=== PATIENT | female | born 2000 | race Caucasian/White ===

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

== ENCOUNTER 2022-01-25 14:22 | Outpatient (REF) | payer OTHER, SELFPAY ==
[2022-01-25 14:48] LABS: Hematocrit 37.6 % (37.0-47.0); Hemoglobin 12.4 g/dl (12.0-16.0); Mean Corpuscular Hemoglobin 27.9 pg (27.0-33.0); Mean Corpuscular Volume 84.7 fL (80.0-98.0); Mean Platelet Volume 9.2 fL (9.4-12.3); Platelet Count 323 X10*3/uL (160-400); Red Blood Count 4.44 X10*6/uL (4.20-5.50); Red Cell Distribution Width 13.9 % (11.0-16.0); White Blood Count 5.5 X10*3/uL (4.8-10.8)
[2022-01-25 15:14] LABS: Iron 68 mcg/dL (30-160); Percent Iron Saturation 18 % (15-50); Total Iron Binding Capacity 383 mcg/dL (228-428); Unsaturated Iron Binding 315 ug/dL
[2022-01-25 15:33] LABS: Ferritin 5 ng/mL (10-122)
[2022-01-25 15:47] LABS: Folate 11.6 ng/mL (> or = 4.0); Vitamin B12 484 pg/mL (200-900)
== END 2022-01-25 14:23 | disposition home or self-care (01) ==
LOC: HO.LAB 14:22
PROVIDERS: PCP Physician Assistant; Visit Provider Physician Assistant
DX: Z86.2 Personal history of diseases of the blood and blood-forming organs and certain disorders involving the immune mechanism (principal)
CPT/HCPCS: 36415; 82607; 82728; 82746; 83540; 85027

== ENCOUNTER 2023-05-09 12:48 | Outpatient (RCR) | payer OTHER, SELFPAY | END 2023-05-16 14:57 | disposition home or self-care (01) | LOC: HO.OT 12:48 | PROVIDERS: PCP Nurse Practitioner Family; Visit Provider Nurse Practitioner Family | DX: G56.03 Carpal tunnel syndrome, bilateral upper limbs (principal) | CPT/HCPCS: 29125; 97110; 97166; 97760 ==

== ENCOUNTER 2023-05-15 11:06 | Outpatient (REF) | payer OTHER, SELFPAY ==
[2023-05-15 11:28] LABS: MANUAL DIFF FLAG NO
[2023-05-15 11:51] LABS: Basophils Percent Auto 0.4 % (0-2); Eosinophils Percent Auto 0.6 % (0-4); Hematocrit 39.4 % (37.0-47.0); Hemoglobin 13.4 g/dl (12.0-16.0); Imm Gran Abs Auto 0.01 X10*3/uL (0.00-0.03); Imm Gran Pct Auto 0.2 % (0.0-0.4); Lymphocytes Absolute Auto 2.2 X10*3/uL (1.2-4.9); Lymphocytes Percent Auto 46.4 % (20-40); Mean Corpuscular Hemoglobin 28.8 pg (27.0-33.0); Mean Corpuscular Volume 84.5 fL (80.0-98.0); Mean Platelet Volume 8.7 fL (9.4-12.3); Monocytes Absolute Auto 0.5 X10*3/uL (0.1-1.2); Monocytes Percent Auto 10.3 % (2-11); Neutrophils Percent Auto 42.1 % (45-73); Platelet Count 282 X10*3/uL (160-400); Red Blood Count 4.66 X10*6/uL (4.20-5.50); White Blood Count 4.7 X10*3/uL (4.8-10.8)
[2023-05-15 12:33] LABS: Appearance Urine Clear; Color Urine Yellow; Glucose Urine UA Negative (Negative); Leukocyte Esterase Urine Trace (Negative); Nitrite Urine Negative (Negative); Specific Gravity - Urine 1.025 (1.005-1.025); UMIC TRIGGER UACC YES; Urine Blood Negative (Negative); Urine Ketones Trace mg/dL (Negative); Urine Protein Negative (Neg-Trace)
[2023-05-15 12:38] LABS: Bacteria Urine 3+ (None Seen); Hyaline Casts Urine 0-2 /LPF (0-2); RBC Urine 0-2 /HPF (0-2); WBC Urine 0-5 /HPF (0-5)
[2023-05-15 12:50] LABS: Alanine Aminotransferase 9 U/L (0-31); Albumin Level 4.1 g/dL (3.5-5.0); Alkaline Phosphatase 53 U/L (39-117); Anion Gap 11 (12-20); Aspartate Amino Transferase 15 U/L (5-31); Bilirubin Total 0.8 mg/dL (0.0-1.0); Blood Urea Nitrogen 9 mg/dL (9-16); Calcium 9.5 mg/dL (8.4-10.2); Carbon Dioxide 26 mmol/L (22-29); Chloride 107 mmol/L (96-108); Cholesterol 157 mg/dL; Estimated Glomerular Filt Rate > 60; Glucose Fasting 85 mg/dL (60-99); HDL Cholesterol 43 mg/dL; LDL Cholesterol Calculated 103 mg/dl; Potassium 3.9 mmol/L (3.3-5.1); Sodium 140 mmol/L (135-145); Triglycerides 55 mg/dL
[2023-05-15 13:06] LABS: TSH reflex Free T4 1.31 uIU/mL (0.32-4.0)
== END 2023-05-15 11:07 | disposition home or self-care (01) ==
LOC: HO.LAB 11:06
PROVIDERS: PCP Nurse Practitioner Family; Visit Provider Nurse Practitioner Family
DX: Z00.00 Encounter for general adult medical examination without abnormal findings (principal); R25.2 Cramp and spasm; K21.9 Gastro-esophageal reflux disease without esophagitis
CPT/HCPCS: 36415; 80053; 80061; 81001; 84443; 85025

== ENCOUNTER 2023-05-31 13:43 | Outpatient (AMB) | payer OTHER, SELFPAY ==
[2023-05-31 13:55] VITALS: BP 114/62; PULSE 90; O2SAT 99; BMI 21.7
--- NOTE | 2023-05-31 13:55 | A.OFFVIS_ITS ---
Intake Vital Signs 05/31/23 13:55 Height 5 ft 3.5 in Weight 124 lb 8.979 oz BMI 21.7 BP 114/62 Blood Pressure Location Lt brachial Position Sitting Pulse 90 Pulse Source Pulse Oximeter Pulse Oximetry (%) 99 Oxygen Delivery Method Room Air Intake Visit Reasons: Asthma Intake Note: New patient visit for management of asthma. Patient would like to know definitively that she asthma. She mentions that she has alot allergies and wonders if they are related. Soundscriber Mechanic Required: No Linotype Machinist: Linotype Machinist offered & declined Accompanied by: Self / Same As Patient Allergies cat dander Allergy (Severe, Verified 05/31/23 13:58) Severe Congestion cranberry Allergy (Severe, Verified 05/31/23 13:58) Itchy Throat dog dander Allergy (Severe, Verified 05/31/23 13:58) Severe Congestion Seasonal Allergies Allergy (Intermediate, Verified 05/31/23 13:58) Itchy Eyes Medication List - Last Reconciled 05/31/23 by Gisselle Guadarrama LPN albuterol sulfate 90 mcg/actuation 2 puffs inhalation Q4-6H PRN HPI Asthma HPI Details Cris is a pleasant 22 year old female, never tobacco smoker, everyday marijuana smoker, with underlying history of asthma. Today she presents for pulmonary evaluation. She reports persistent chest tightness, shortness of breath, productive cough with yellow sputum for the past two years. She also reports environmental allergies as well as allergies to cats. She has two cats and a dog at home. She is not on any allergy medications. She has had asthma since childhood but has never hospitalized or intubated due to exacerbations. She reports a maternal uncle with lung cancer, smoker, and siblings with asthma. She reports using a family members nebulizer machine PRN and has an albuterol MDI but does not like the side effects so uses infrequently. She has not been on any maintenance inhalers and has not had a recent PFT. [facility] Medical History Bronchitis Ovarian cyst Vaping-related disorder Surgical History No pertinent past surgical history Family History Mother No problems noted. Father Diabetes Maternal Grandmother High blood pressure Paternal Grandmother Diabetes Maternal Grandfather Diabetes Paternal Grandfather Diabetes Family/Other Breast cancer Maternal Aunt Breast cancer Stomach cancer Social History Housing: Apartment Alcohol intake: never Patient Tobacco Use Status: Current everyday Tobacco user (Hookah) Tobacco use type: Pipe (HOOKAH) e-Cigarette/Vaping Use: Former Use service: No Current occupational status: unemployed Cognitive needs: No Hearing needs: No Vision needs: No (Needs to make an appt with eye doctor. ) Review of Systems Const Denies chills, Denies excessive sweating, Denies fever(s), Denies headache(s) and Denies night sweats Eyes Denies dry eyes, Denies irritation and Reports itchy eyes ENT Reports Normal hearing present, Denies headache(s), Reports nasal congestion, Denies nasal discharge, Denies post nasal drip and Denies sore throat Card Denies chest pain, Denies chest pain at rest, Denies chest pain with activity, Denies claudication, Denies leg edema, Denies dyspnea, Denies orthopnea and Denies paroxysmal nocturnal dyspnea Resp Denies chest congestion, Denies excessive phlegm production, Denies pain on inspiration, Denies pain with cough, Denies dyspnea, Denies stridor and Reports wheezing Musc Denies myalgias Neuro Reports Normal hearing present and Denies headache(s) Endo Denies excessive sweating Schuyler/Lymph Denies lymphadenopathy Aller/Immun Reports itchy eyes, Denies seasonal rhinorrhea and Reports wheezing Physical Exam Vital Signs: Last Vital Signs Pulse 90 05/31/23 13:55 BP 114/62 05/31/23 13:55 Pulse Ox 99 05/31/23 13:55 Oxygen Delivery Method Room Air 05/31/23 13:55 BMI result Body Mass Index 21.7 Const General: cooperative, healthy appearing, comfortable, no acute distress, well developed and alert Orientation/consciousness: patient oriented x3 Limitations: no limitations HEENT Head: Yes normal to inspection, Yes normocephalic and Yes atraumatic Ears: hearing grossly normal bilaterally and external ears normal Eyes General: appearance normal, both eyes and all related structures Eyelids: Yes eyelids normal Sclerae: sclerae normal EOM: EOMs intact bilaterally Neck Neck: Yes normal visual inspection and Yes no lymphadenopathy Lymphatic: no lymphadenopathy noted Chest Chest palpation & inspection: normal inspection of the chest Resp Other: poor air movement bilaterally, improved after xopenex Effort & Inspection: normal respiratory effort, able to speak in complete sentences, no audible wheezes, no cough, no stridor, not tachypneic, no tripod positioning and no use of accessory muscles Auscultation: clear to auscultation bilaterally Cardio Jugular venous distension: no JVD Rate: regular rate Rhythm: regular rhythm Skin Other: warm, dry General skin exam: no rashes or lesions noted Neuro General: patient oriented x3 Cranial nerves: Yes Normal hearing present Cognition (Neuro): normal cognition Gait exam (Neuro): Normal gait present Extrem General: Yes normal to inspection, Yes capillary refill normal, Yes no clubbing, cyanosis or edema and Yes no pedal edema Psych Appearance: grossly normal and well kempt Speech and movement: Normal speech and movement present and Clear speech present Affect: normal affect Attitude: cooperative Thought process: Normal thought process present Thought content: Normal thought content present Insight: Good insight present (Psych) Judgement: Good judgement present (Psych) Assessment & Plan Assessment & Plan (1) Asthma: Code(s): J45.909 - Unspecified asthma, uncomplicated (2) Environmental allergies: Code(s): Z91.09 - Other allergy status, other than to drugs and biological substances Plan Cris's symptoms consistent with asthma and underlying allergic component. Will order PFT as well as RAST. On exam, patient with poor air movement bilaterally and gave xopenex treatment in office with improvements. Will send in nebulizer and xopenex to use PRN. Discussed adding an empiric inhaler but she would like to hold off until PFT results. All questions were answered and patient is in agreement of plan. Will follow up to review results. Orders: Orders Rast Allergen Today Z91.09 - Other allergy status, other than to drugs and biological substances AMB Nebulizer Treatment Today J40 - Bronchitis, not specified as acute or chronic Medications: New levalbuterol HCl 1.25 mg (3 mL) inhalation ONCE 3 mL 0RF bronchitis J40 - Bronchitis, not specified as acute or chronic levalbuterol HCl must dilute for administration 1.25 mg (0.5 mL) inhalation Q4-6H PRN 90 mL 3RF shortness of breath or wheezing Coding Level of Care Code New Pt Level 4 (63470) Diagnoses Asthma J45.909 Environmental allergies Z91.09
== END 2023-05-31 14:43 | disposition home or self-care (01) ==
PROVIDERS: PCP Nurse Practitioner Family; Visit Provider Nurse Practitioner Family
DX: J45.909 Unspecified asthma, uncomplicated (principal); Z91.09 Other allergy status, other than to drugs and biological substances
CPT/HCPCS: 99204

== ENCOUNTER → 2023-05-31 13:43 | Outpatient (BNVA) | payer OTHER, SELFPAY | PROVIDERS: PCP Nurse Practitioner Family; Visit Provider Nurse Practitioner Family | DX: J45.909 Unspecified asthma, uncomplicated (principal); Z91.09 Other allergy status, other than to drugs and biological substances | CPT/HCPCS: 99202 ==

== ENCOUNTER 2023-06-19 10:34 | Outpatient (AMB) | payer OTHER, SELFPAY ==
--- NOTE | 2023-06-19 10:36 | MHC.OFFVIS ---
Intake Vital Signs 06/19/23 10:37 Height 5 ft 3.5 in Weight 124 lb 5.451 oz BMI 21.7 BP 110/64 Blood Pressure Location Lt brachial Position Sitting Pulse 80 Intake Visit Reasons: GERD, abd cramps Intake Note: Cris presents in office as a new.patient for GERD, abd cramps PT CC: pt reports having abdominal cramping and GERD on/off 3-4 days out of the week, constipation , bloating pt denies any other GI Issues. Lumber Tailer Required: No Accompanied by: Spouse Allergies cat dander Allergy (Severe, Verified 06/19/23 10:37) Severe Congestion cranberry Allergy (Severe, Verified 06/19/23 10:37) Itchy Throat dog dander Allergy (Severe, Verified 06/19/23 10:37) Severe Congestion Seasonal Allergies Allergy (Intermediate, Verified 06/19/23 10:37) Itchy Eyes HPI GERD, abd cramps HPI Details 22-year-old female with past medical history anxiety, asthma PTSD is here today for initial consultation. Patient was referred by PCP. Patient was seen by foaming machine operator in the past. Had upper endoscopy and colonoscopy done at [facility]. Currently she is not taking any PPI ice or H2 blockers. Patient reports frequent epigastric discomfort postprandially. Patient states that also after drinking orange juice or soda she also will have epigastric pain. Patient reports frequent dyspepsia is without dysphagia or odynophagia. Patient denies any nausea or vomiting. Patient states that frequently due to epigastric discomfort patient states that she feels full. Patient states that she has normal appetite. Patient has not notice to see which food causes her postprandial dyspepsia. Patient feels like anything she eats makes her feel this way. Patient also reports postprandial abdominal bloating. REPLACED BY [facility] Medical History Bronchitis Ovarian cyst Vaping-related disorder Surgical History No pertinent past surgical history Family History Mother No problems noted. Father Diabetes Maternal Grandmother High blood pressure Paternal Grandmother Diabetes Maternal Grandfather Diabetes Paternal Grandfather Diabetes Family/Other Breast cancer Maternal Aunt Breast cancer Stomach cancer Social History Housing: Apartment Alcohol intake: never Patient Tobacco Use Status: Current everyday Tobacco user (Hookah) Tobacco use type: Pipe (HOOKAH) e-Cigarette/Vaping Use: Former Use service: No Current occupational status: unemployed Cognitive needs: No Hearing needs: No Vision needs: No (Needs to make an appt with eye doctor. ) Review of Systems Const Denies weight gain and Denies weight loss ENT Reports no additional complaints, Denies dysphagia and Denies odynophagia Card Reports no additional complaints Resp Reports no additional complaints GI Reports abdominal pain (Epigastric), Denies belching, Denies melena, Reports bloating (Occasional), Reports constipation, Denies dysphagia, Denies excessive flatus, Reports dyspepsia, Reports heartburn, Denies diarrhea, Denies loose stools, Denies nausea, Denies odynophagia and Denies vomiting Reports no additional complaints Musc Reports no additional complaints Neuro Reports no additional complaints Psych Reports no additional complaints Endo Reports no additional complaints Physical Exam Vital Signs: Last Vital Signs Pulse 80 06/19/23 10:37 BP 110/64 06/19/23 10:37 BMI result Body Mass Index 21.7 Const General: healthy appearing, no acute distress and well developed Nutritional Appearance: well nourished Orientation/consciousness: patient oriented x3 HEENT Head: Yes normal to inspection, Yes normocephalic and Yes atraumatic Face and sinus: Yes normal facial exam Mouth: Normal oral and palatal mucosa present Throat: Yes posterior oropharynx normal, Yes tonsils normal and Yes uvula midline Eyes General: appearance normal, both eyes and all related structures Neck Neck: Yes normal visual inspection, Yes full ROM and Yes trachea midline Thyroid: Thyroid normal Resp Effort & Inspection: normal respiratory effort, able to speak in complete sentences, no tracheal deviation and symmetric chest movement Auscultation: clear to auscultation bilaterally Cardio Rate: regular rate Heart sounds: S1 normal heart sound present and S2 normal heart sound present GI Inspection: Yes normal to inspection and No distended Palpation (GI): Soft to palpation, not firm, nontender and No hepatosplenomegaly present Auscultation: normal bowel sounds General: Yes no CVA tenderness Back/Spine/Pelvis Back: no CVA tenderness Skin General skin exam: elasticity normal, turgor normal and dry skin Neuro General: patient oriented x3 Psych Appearance: grossly normal Mental Status: mental status grossly normal Speech and movement: Normal speech and movement present Affect: normal affect Assessment & Plan Assessment & Plan (1) GERD (gastroesophageal reflux disease): Code(s): K21.9 - Gastro-esophageal reflux disease without esophagitis Qualifiers: Esophagitis presence: without esophagitis Qualified Code(s): K21.9 - Gastro-esophageal reflux disease without esophagitis Plan: Will start patient on pantoprazole and she will start that after H pylori testing. Patient will be scheduled for Monday for H pylori testing with the nurse. She can start taking pantoprazole after. Patient was also encouraged to avoid dietary triggers and late night snacking. Staying upright for minimal 3 hours after meals discussed with patient. (2) Postprandial abdominal bloating: Code(s): R14.0 - Abdominal distension (gaseous) Plan: Discussed with patient avoiding dietary triggers. Patient reports epigastric discomfort postprandially as well. Will start her on pantoprazole. Discuss with patient avoiding dietary triggers. Will order transglutaminase and H pylori. Will treat empirically if positive (3) Constipation: Code(s): K59.00 - Constipation, unspecified Qualifiers: Constipation type: slow transit constipation Qualified Code(s): K59.01 - Slow transit constipation Plan: Patient reports to be constipated. Patient states that she will have a bowel movement only if she drinks a lot a water. Patient was encouraged to increase fluid intake and activity to promote better bowel motility. I will give her script for MiraLax. I will see her in 6 weeks, sooner on as needed basis. Patient is agreeable to this plan and verbalizes understanding of instructions. She was given the opportunity to ask questions all questions answered. Thank you for allowing me to participate in her care Orders: Orders Transglutaminase IgA Today R10.9 - Unspecified abdominal pain Transglutaminase Ab IgG Today R10.9 - Unspecified abdominal pain H Pylori Breath Test Today Medications: New pantoprazole take one tablet half an hour before breakfast 40 mg PO DAILY 30 tabs 2RF K21.9 - Gastro-esophageal reflux disease without esophagitis polyethylene glycol 3350 (Miralax) 17 grams PO DAILY 510 grams 2RF Coding Level of Care Code New Pt Level 4 (44539) Diagnoses GERD (gastroesophageal reflux disease) K21.9 Esophagitis presence: without esophagitis Postprandial abdominal bloating R14.0 Constipation K59.01 Constipation type: slow transit constipation Time Spent (min) 45 Comment 30 minutes spent with patient and additional 15 minutes spent reviewing her records
[2023-06-19 10:37] VITALS: BP 110/64; PULSE 80; BMI 21.7
== END 2023-06-19 12:21 | disposition home or self-care (01) ==
PROVIDERS: PCP Nurse Practitioner Family; Visit Provider Nurse Practitioner Family
DX: K21.9 Gastro-esophageal reflux disease without esophagitis (principal); R14.0 Abdominal distension (gaseous); K59.01 Slow transit constipation
CPT/HCPCS: 99204

== ENCOUNTER 2023-06-19 10:34 | Outpatient (REF) | payer OTHER, SELFPAY ==
[2023-06-21 14:13] LABS: Transglutaminase Ab IgG <1.0 U/mL; Transglutaminase IgA <1.0 U/mL
== END 2023-06-19 10:35 | disposition home or self-care (01) ==
LOC: HO.LAB 10:34
PROVIDERS: Nurse Practitioner Family; PCP Nurse Practitioner Family; Visit Provider Nurse Practitioner Family
DX: K21.9 Gastro-esophageal reflux disease without esophagitis (principal); R10.9 Unspecified abdominal pain; R14.0 Abdominal distension (gaseous); K59.01 Slow transit constipation; Z91.09 Other allergy status, other than to drugs and biological substances
CPT/HCPCS: 36415; 82785; 86003; 86364; 99202

== ENCOUNTER 2023-07-10 15:28 | Outpatient (REF) | payer OTHER, SELFPAY ==
--- NOTE | 2023-07-10 16:20 | PFT_ITS ---
INDICATION: Asthma. SPIROMETRY: FEV to FVC of 97% with an FEV1 of 3.47 L, which is 160% predicted, FVC of 3.58 L, which is 95% predicted. No significant response to bronchodilators noted. Maximum voluntary ventilation is 69% predicted. LUNG VOLUMES: Total lung capacity 91% predicted with a residual volume 161% predicted. DIFFUSION CAPACITY: DLCO of 94% predicted. POST TEST COMMENTS: The patient did attempt all the maneuvers with great effort but had some difficulties performing the FVC. Also after the epidural, she did have some adverse effects from the regular epidural medication. Otherwise, she has tolerated the procedure. COMPARISONS: None. INTERPRETATION: No obstructive nor restrictive ventilatory defects identified. No significant response to bronchodilators noted. Mild decrease in the maximum voluntary ventilation, which is secondary to likely deconditioning and also worsening dynamic inspiratory capacity. Lung volumes with significant air trapping, which may be related to small airway disease. In addition to that, diffusion capacity is within normal limits. If asthma is in the differential, methacholine challenge may be helpful in assessing for hyperreactive airways. Otherwise, clinical correlation warranted. MD KIANNA Tamayo/[facility] / [id number]
== END 2023-07-10 15:29 | disposition home or self-care (01) ==
LOC: HO.RESP 15:28
PROVIDERS: PCP Nurse Practitioner Family; Visit Provider Nurse Practitioner Family
DX: J45.909 Unspecified asthma, uncomplicated (principal)
CPT/HCPCS: 94010; 94727; 94729

== ENCOUNTER → 2023-07-10 16:20 | Outpatient (BNV) | payer OTHER, SELFPAY | PROVIDERS: PCP Nurse Practitioner Family; Visit Provider Hospitalist | DX: J45.909 Unspecified asthma, uncomplicated (principal) | CPT/HCPCS: 94060; 94727; 94729 ==

== ENCOUNTER → 2023-07-11 13:08 | Outpatient (AMB) | payer OTHER, SELFPAY ==
[2023-07-11 13:13] VITALS: BP 102/60; PULSE 68; O2SAT 100; BMI 21.6
--- NOTE | 2023-07-11 13:13 | A.OFFVIS_ITS ---
Intake Vital Signs 07/11/23 13:13 Height 5 ft 3.5 in Weight 124 lb BMI 21.6 BP 102/60 Blood Pressure Location Lt brachial Position Sitting Pulse 68 Pulse Source Pulse Oximeter Pulse Oximetry (%) 100 Oxygen Delivery Method Room Air Intake Visit Reasons: asthma Aluminizer Required: No Cisco Network Architect: Cisco Network Architect offered & declined Accompanied by: Spouse Allergies cat dander Allergy (Severe, Verified 07/11/23 13:18) Severe Congestion cranberry Allergy (Severe, Verified 07/11/23 13:18) Itchy Throat dog dander Allergy (Severe, Verified 07/11/23 13:18) Severe Congestion Seasonal Allergies Allergy (Intermediate, Verified 07/11/23 13:18) Itchy Eyes Medication List - Last Reconciled 07/11/23 by Gisselle Guadarrama LPN albuterol sulfate 90 mcg/actuation 2 puffs inhalation Q4-6H PRN levalbuterol HCl 1.25 mg (0.5 mL) inhalation Q4-6H PRN pantoprazole 40 mg PO DAILY polyethylene glycol 3350 (Miralax) 17 grams PO DAILY HPI asthma HPI Details Cris is a pleasant 22 year old female, never tobacco smoker, everyday marijuana smoker, with underlying history of asthma. She reports persistent chest tightness, shortness of breath, productive cough and triggers to dust as well as multiple irritants with good response to albuterol. Today she reports to follow up on PFT and RAST testing. At the last visit she was sent a nebulizer and received the machine but has not been to the pharmacy to tile picker levalbuterol. [facility] Medical History Bronchitis Ovarian cyst Vaping-related disorder Surgical History No pertinent past surgical history Family History Mother No problems noted. Father Diabetes Maternal Grandmother High blood pressure Paternal Grandmother Diabetes Maternal Grandfather Diabetes Paternal Grandfather Diabetes Family/Other Breast cancer Maternal Aunt Breast cancer Stomach cancer Social History Housing: Apartment Alcohol intake: never Patient Tobacco Use Status: Current everyday Tobacco user (Hookah) Tobacco use type: Pipe (HOOKAH) e-Cigarette/Vaping Use: Former Use service: No Current occupational status: unemployed Cognitive needs: No Hearing needs: No Vision needs: No (Needs to make an appt with eye doctor. ) Review of Systems Const Denies chills, Denies excessive sweating, Denies fever(s), Denies headache(s) and Denies night sweats Eyes Denies dry eyes, Denies irritation and Reports itchy eyes ENT Reports Normal hearing present, Denies headache(s), Reports nasal congestion, Denies nasal discharge, Denies post nasal drip and Denies sore throat Card Denies chest pain, Denies chest pain at rest, Denies chest pain with activity, Denies claudication, Denies leg edema, Denies dyspnea, Denies orthopnea and Denies paroxysmal nocturnal dyspnea Resp Denies chest congestion, Denies excessive phlegm production, Denies pain on inspiration, Denies pain with cough, Denies dyspnea, Denies stridor and Reports wheezing Musc Denies myalgias Neuro Reports Normal hearing present and Denies headache(s) Endo Denies excessive sweating Schuyler/Lymph Denies lymphadenopathy Aller/Immun Reports itchy eyes, Denies seasonal rhinorrhea and Reports wheezing Physical Exam Vital Signs: Last Vital Signs Pulse 68 07/11/23 13:13 BP 102/60 07/11/23 13:13 Pulse Ox 100 07/11/23 13:13 Oxygen Delivery Method Room Air 07/11/23 13:13 BMI result Body Mass Index 21.6 Const General: cooperative, healthy appearing, comfortable, no acute distress, well developed and alert Orientation/consciousness: patient oriented x3 Limitations: no limitations HEENT Head: Yes normal to inspection, Yes normocephalic and Yes atraumatic Ears: hearing grossly normal bilaterally and external ears normal Eyes General: appearance normal, both eyes and all related structures Eyelids: Yes eyelids normal Sclerae: sclerae normal EOM: EOMs intact bilaterally Neck Neck: Yes normal visual inspection and Yes no lymphadenopathy Lymphatic: no lymphadenopathy noted Chest Chest palpation & inspection: normal inspection of the chest Resp Effort & Inspection: normal respiratory effort, able to speak in complete se ntences, no audible wheezes, no cough, no stridor, not tachypneic, no tripod positioning and no use of accessory muscles Auscultation: diminished lung sounds Cardio Jugular venous distension: no JVD Rate: regular rate Rhythm: regular rhythm Skin Other: warm, dry General skin exam: no rashes or lesions noted Neuro General: patient oriented x3 Cranial nerves: Yes Normal hearing present Cognition (Neuro): normal cognition Gait exam (Neuro): Normal gait present Extrem General: Yes normal to inspection, Yes capillary refill normal, Yes no clubbing, cyanosis or edema and Yes no pedal edema Psych Appearance: grossly normal and well kempt Speech and movement: Normal speech and movement present and Clear speech present Affect: normal affect Attitude: cooperative Thought process: Normal thought process present Thought content: Normal thought content present Insight: Good insight present (Psych) Judgement: Good judgement present (Psych) Results Reviewed Results Reviewed: Assessment & Plan Assessment & Plan (1) Asthma: Code(s): J45.909 - Unspecified asthma, uncomplicated (2) Environmental allergies: Code(s): Z91.09 - Other allergy status, other than to drugs and biological substances Plan Reviewed PFT with patient which did not reveal an obstructive or restrictive ventilatory defect, although symptoms consistent with asthma. There were findings suggestive of air trapping which could be related to small airway disease. Will trial ICS/LABA. Reviewed RAST testing which was positive to dust mites. Discussed allergen avoidance measures. She noted that she previously was under the care of an promotions executive, receiving allergen immunotherapy with good effect and is interested in restarting. Encouraged patient to schedule a follow up with promotions executive. All questions were answered and patient is in agreement of plan. Will follow up to three months to review effectiveness of inhaler. Medications: New mometasone-formoterol 100-5 mcg/actuation (Dulera) 2 puffs inhalation BID 1 ea 3RF levalbuterol tartrate 45 mcg/actuation 2 puffs inhalation Q4-6H PRN 15 grams 3RF shortness of breath Coding Level of Care Code Est Pt Level 4 (35266) Diagnoses Asthma J45.909 Environmental allergies Z91.09
== END ==
PROVIDERS: PCP Nurse Practitioner Family; Visit Provider Nurse Practitioner Family
DX: J45.909 Unspecified asthma, uncomplicated (principal); Z91.09 Other allergy status, other than to drugs and biological substances
CPT/HCPCS: 99214

== ENCOUNTER → 2023-07-11 13:08 | Outpatient (BNVA) | payer OTHER, SELFPAY | PROVIDERS: PCP Nurse Practitioner Family; Visit Provider Nurse Practitioner Family | DX: J45.909 Unspecified asthma, uncomplicated (principal); Z91.09 Other allergy status, other than to drugs and biological substances | CPT/HCPCS: 99212 ==

== ENCOUNTER 2023-11-30 13:14 | Emergency (ER) | payer OTHER, SELFPAY ==
[2023-11-30 13:58] VITALS: BP 114/63; PULSE 100; RESP 19; TEMP 36.8; O2SAT 98; BMI 22.1
--- NOTE | 2023-11-30 14:00 | ED_ITS ---
HPI - URI/Sore Throat General Chief Complaint: Upper Respiratory Symptoms Stated Complaint: coughing up phlem yellow Time Seen by Provider: 11/30/23 16:58 Source: patient and family Mode of arrival: ambulatory Limitations: no limitations History of Present Illness HPI Narrative: Feeling unwell since Monday and cough started 3 days ago. Hx: asthma but has not been using her inhalers as they make her shaky and cause increased difficulty with sleeping. Decreased sleep, getting around 3 hours a night, due to cough. Coughing up thick yellow secretions. Took dayquil earlier today with no relief in symptoms. Denies CP, n/v/d, fevers, chills MD elicited complaint: cough Severity: moderate Description of mucous: yellow Able to tolerate fluids by mouth: Yes Related Data Previous Rx's Medication Instructions Recorded albuterol sulfate 90 mcg/actuation 2 puff inhalation Q4-6H PRN 08/26/21 aerosol inhaler shortness of breath or wheezing #8.5 grams levalbuterol HCl 1.25 mg/0.5 mL 1.25 mg (0.5 mL) inhalation Q4-6H 05/31/23 solution for nebulization PRN shortness of breath or wheezing #90 mL polyethylene glycol 3350 17 17 g PO DAILY #510 grams 06/19/23 gram/dose oral powder (Miralax) levalbuterol tartrate 45 2 puff inhalation Q4-6H PRN 07/11/23 mcg/actuation aerosol inhaler shortness of breath #15 grams mometasone-formoterol HFA 100 2 puff inhalation BID #1 ea 07/11/23 mcg-5 mcg/actuation aerosol inhaler (Dulera) pantoprazole 40 mg tablet,delayed 40 mg PO DAILY 90 days #90 tabs 08/22/23 release guaifenesin 600 mg tablet, 600 mg PO Q12H PRN congestion #10 11/30/23 extended release 12 hr (Mucinex) tabs ondansetron 4 mg disintegrating 4 mg PO Q6H #20 tabs 11/30/23 tablet Allergies Allergy/AdvReac Type Severity Reaction Status Date / Time cat dander Allergy Severe Severe Verified 11/30/23 13:58 Congestion cranberry Allergy Severe Itchy Verified 11/30/23 13:58 Throat dog dander Allergy Severe Severe Verified 11/30/23 13:58 Congestion Seasonal Allergies Allergy Intermediate Itchy Eyes Verified 11/30/23 13:58 Review of Systems Review of Systems: Yes all other systems are reviewed and are negative PMFSH Past Medical History Onset Date is defined in the Problem List Problems that require an onset date and time if occurred within 24 hrs of arrival to the ED Aortic Dissection and Rupture; Neurologic impairment; Cardiopulmonary Arrest; Endotracheal Intubation; Insertion or Replacement of Mechanical Circulatory Assist Device Medical History Bronchitis Ovarian cyst Vaping-related disorder Surgical History No pertinent past surgical history Family History Family History Mother No problems noted. Father Diabetes Maternal Grandmother High blood pressure Paternal Grandmother Diabetes Maternal Grandfather Diabetes Paternal Grandfather Diabetes Family/Other Breast cancer Maternal Aunt Breast cancer Stomach cancer Social History Social History Housing: Apartment Alcohol intake: never Patient Tobacco Use Status: Current everyday Tobacco user Tobacco use type: Pipe e-Cigarette/Vaping Use: Former Use service: No Current occupational status: unemployed Cognitive needs: No Hearing needs: No Vision needs: No (Needs to make an appt with eye doctor. ) Physical Exam Vital Signs: Vital Signs: Last Vital Signs Temp 98.5 F 11/30/23 17:08 Pulse 103 H 11/30/23 17:08 Resp 20 11/30/23 17:08 BP 109/63 11/30/23 17:08 Pulse Ox 96 11/30/23 17:08 O2 Del Method Room Air 11/30/23 17:08 BMI result Body Mass Index 22.1 Const: General: cooperative, no acute distress, alert and awake Nutritional Appearance: well nourished Limitations: no limitations HEENT: Head: Yes normal to inspection and Yes atraumatic Ears: hearing grossly normal bilaterally and external ears normal General nose exam: Normal external nose present Face and sinus: Yes normal facial exam Mouth: Normal oral and palatal mucosa present Eyes: General: appearance normal, both eyes and all related structures Alignment and Position: alignment normal Periorbital: periorbital findings normal Eyelids: Yes eyelids normal Conjunctivae: conjunctivae normal Sclerae: sclerae normal EOM: EOMs intact bilaterally Neck: Neck: Yes normal visual inspection and Yes full ROM Chest: Chest palpation & inspection: normal inspection of the chest Resp: Effort & Inspection: normal respiratory effort and able to speak in complete sentences Auscultation: clear to auscultation bilaterally Cardio: Rate: regular rate Rhythm: regular rhythm Skin: General skin exam: no rashes or lesions noted Extrem: General: Yes normal to inspection, Yes full ROM and Yes capillary refill normal Medical Decision Making Medical Decision Making MDM Narrative: Nasal serology positive for Influenza A. Patient is safe for discharge at this time with low suspicion for pna, ptx, bronchitis, sepsis, or malignancy. Plan for [id number] Tylenol and/or NSAID such as ibuprofen or naproxen for fever/discomfort with dosing as per packaging. HPI, PE, diagnostics, and plan discussed with patient and family with no unanswered questions at this time. Strict return precautions given to return to the emergency department with new, worsening, or concerning emergent symptoms. Recommended to follow-up with there primary care provider in 24-48 hours for further treatment and management. Differential Diagnosis Differential Diagnoses: The differential diagnosis associated with the presentation includes A limited to ACS, PE, viral upper respiratory infection, COVID, flu, sepsis, bronchitis, pneumonia, pleurisy Lab Data Labs: Lab Results 11/30/23 Range/Units 16:07 COVID-19 (DANIELLA) Negative (Negative) COVID-19 Clin Com See Note Influenza Type A (FIOR) Positive A (Negative) Influenza Type B (FIOR) Negative (Negative) Influenza A & B Note See Note Discharge Plan Discharge Clinical Impression: Influenza A Patient Disposition: Home, Self-Care Instructions: Influenza (ED) Additional Instructions: Please use over the counter Tylenol and Ibuprofen for management of fevers and body aches. Please increase your fluid intake. Prescriptions: New guaifenesin [Mucinex] 600 mg tablet extended release 12hr 600 mg PO Q12H PRN (Reason: congestion) Qty: 10 0RF ondansetron 4 mg tablet,disintegrating 4 mg PO Q6H Qty: 20 0RF No Action pantoprazole 40 mg tablet,delayed release (DR/EC) 40 mg PO DAILY 90 Days Qty: 90 2RF Rx Instructions: take one tablet half an hour before breakfast albuterol sulfate 90 mcg/actuation HFA aerosol inhaler 2 puff inhalation Q4-6H PRN (Reason: shortness of breath or wheezing) Qty: 8.5 2RF levalbuterol HCl 1.25 mg/3 mL solution for nebulization 1.25 mg inhalation ONCE Qty: 3 0RF levalbuterol HCl 1.25 mg/0.5 mL solution for nebulization 1.25 mg inhalation Q4-6H PRN (Reason: shortness of breath or wheezing) Qty: 90 3RF Rx Instructions: must dilute for administration polyethylene glycol 3350 [Miralax] 17 gram/dose powder 17 g PO DAILY Qty: 510 2RF Dulera 100-5 mcg/actuation HFA aerosol inhaler 2 puff inhalation BID Qty: 1 3RF levalbuterol tartrate 45 mcg/actuation HFA aerosol inhaler 2 puff inhalation Q4-6H PRN (Reason: shortness of breath) Qty: 15 3RF Referrals: Jorge Eastman CNP [Primary Care Provider] - Stand Alone Forms: Work/School Release Interventions: ED Discharge Assessment Last Done: 11/30/23 17:12 Discharge Date/Time: 11/30/23 17:14 Print Language: [place]an
[2023-11-30 16:38] LABS: COVID-19 Test Negative (Negative); IDNOW Serial# 08D9AD1C; IDNOW Serial# 152EDE1D; Influenza A Positive (Negative); Influenza B2 Negative (Negative)
[2023-11-30 17:08] VITALS: BP 109/63; PULSE 103; RESP 20; TEMP 36.9; O2SAT 96
== END 2023-11-30 17:14 | disposition home or self-care (01) ==
LOC: HO.ED 17:13
PROVIDERS: Nurse Practitioner Family; Emergency Provider Student in an Organized Health Care Education/Training Program; PCP Nurse Practitioner Family
DX: J10.1 Influenza due to other identified influenza virus with other respiratory manifestations (principal); Z11.52 Encounter for screening for COVID-19
CPT/HCPCS: 87502; 87635; 99282; 99283

== ENCOUNTER 2023-12-11 12:55 | Outpatient (AMB) | payer OTHER, SELFPAY ==
[2023-12-11 12:59] VITALS: BP 97/60; PULSE 81; RESP 13; TEMP 36.6; O2SAT 99; BMI 21.1
--- NOTE | 2023-12-11 12:59 | MHC.PC.OV ---
Vital Signs 12/11/23 12:59 Height 5 ft 3 in Weight 119 lb BMI 21.1 BP 97/60 Blood Pressure Location Rt brachial Position Sitting Respiration 13 Pulse 81 Pulse Source Pulse Oximeter Temp 97.9 F Temp Source Temporal Artery Scan Pulse Oximetry (%) 99 Oxygen Delivery Method Room Air Intake Visit Reasons: ED Elsa 12/03/23- Flu Intake Note: Patient states that she still has a cough. Hat Body Sorter Required: No Accompanied by: Self / Same As Patient Allergies cat dander Allergy (Severe, Verified 11/30/23 13:58) Severe Congestion cranberry Allergy (Severe, Verified 11/30/23 13:58) Itchy Throat dog dander Allergy (Severe, Verified 11/30/23 13:58) Severe Congestion Seasonal Allergies Allergy (Intermediate, Verified 11/30/23 13:58) Itchy Eyes Tobacco use date assessed: 04/13/23 Dental Screening Dental Screen Date: 12/11/23 Did you have a dental visit in the last 12 months?: Yes Did you have a dental problem in the last 6 months where you did not have access to dental care?: No Was dental information given to patient?: Patient has dentist HPI HPI Comments History of Present Illness Details 23-year-old female presents for a follow-up visit She notes she was evaluated at [facility] and was diagnosed with the flu 2 weeks ago. She notes that her potassium levels was low, 3.1. She notes that she she continues to experience intermittent cramping to her bilateral lower legs, right worse than left She notes that she continues to experience intermittent cough with light yellow phlegm and sore throat. No headache, fever, chills, body aches, fatigue, or weakness [facility] Medical History Ovarian cyst Bronchitis Vaping-related disorder Surgical History No pertinent past surgical history Family History Mother No problems noted. Father Diabetes Maternal Grandmother High blood pressure Paternal Grandmother Diabetes Maternal Grandfather Diabetes Paternal Grandfather Diabetes Family/Other Breast cancer Maternal Aunt Breast cancer Stomach cancer Social History (Reviewed 12/11/23 @ 13:09 by LAMBERT Almaraz Housing: Apartment Alcohol intake: never Patient Tobacco Use Status: Never used Tobacco Tobacco use type: Pipe e-Cigarette/Vaping Use: Former Use service: No Current occupational status: unemployed Cognitive needs: No Hearing needs: No Vision needs: No (Needs to make an appt with eye doctor. ) Questionnaire Thrive Questionnaire Date Thrive assessed: 04/13/23 CHANDRAKANT-7 AMB Questionnaire CHANDRAKANT-7 Date CHANDRAKANT - 7 assessed: 04/13/23 Source: Developed by Drs. Mk Joyner, Priscilla Brock, Charanjit Rajan and colleagues, with an educational marlon from [employer]. Review of Systems Const Details: Const Denies chills, Denies fatigue, Denies fever(s), Denies headache(s) and Denies weakness ENT Denies dizziness and Denies headache(s) Card Denies chest pain, Denies lightheadedness, Denies dyspnea and Denies other (Palpitations) Resp Reports cough, Denies dyspnea, Denies wheezing and Denies other ( shortness of breath) GI Denies abdominal pain, Denies melena, Denies hematochezia, Denies change in bowel habits, Denies dyspepsia and Denies nausea Denies hematuria and Denies dysuria Musc Denies abnormal gait, Denies myalgias, Denies arthralgias, Denies numbness and Denies tingling Skin/Breast Denies rash, Denies unusual bruising and Denies wounds Neuro Denies abnormal gait, Denies dizziness, Denies headache(s), Denies memory loss, Denies numbness, Denies Sensory deficit (Neuro), Denies tingling and Denies weakness Psych Denies anxiety, Denies depression, Denies memory loss Endo Denies cold intolerance, Denies fatigue, Denies heat intolerance, Denies polydipsia and Denies polyuria Aller/Immun Denies wheezing Physical exam (Primary Care) Vital Signs: Last Vital Signs Temp 97.9 F 12/11/23 12:59 Pulse 81 12/11/23 12:59 Resp 13 12/11/23 12:59 BP 97/60 12/11/23 12:59 Pulse Ox 99 12/11/23 12:59 Oxygen Delivery Method Room Air 12/11/23 12:59 BMI result Body Mass Index 21.1 Tobacco/Smoking Status: Tobacco use Status Tobacco use date assessed 04/13/23 12/11/23 13:09 Patient Tobacco Use Status Never used Tobacco 12/11/23 13:09 Tobacco use type Pipe 12/11/23 13:09 e-Cigarette/Vaping Use Former Use 12/11/23 13:09 Thrive Assessment: Date of Thrive Assessment Date Thrive assessed 04/13/23 12/11/23 13:09 Const Other: General: no acute distress and well developed Nutritional Appearance: well nourished Orientation/consciousness: patient oriented x3 HENMT Head is normocephalic Bilateral ear canal and TM are normal Nasal turbinates and oropharynx are pink and moist Sinuses are nontender with palpation No auricular or cervical lymphadenopathy Eyes General: appearance normal, both eyes and all related structures Pupils: Equal, round and reactive pupils present EOM: EOMs intact bilaterally Resp Effort & Inspection: normal respiratory effort Auscultation: clear to auscultation bilaterally Cardio Rate: regular rate Rhythm: regular rhythm Heart sounds: S1 normal heart sound present, S2 normal heart sound present, no gallops, no murmurs and no rubs GI Palpation (GI): No Abdominal aortic bruit present, Soft to palpation, nontender, No hepatosplenomegaly present and No Rebound tenderness present Auscultation: normal bowel sounds General: Yes no CVA tenderness Back/Spine/Pelvis Back: no CVA tenderness Cervical Spine: cervical ROM normal and No Cervical spine tenderness Thoracic/Lumbar Spine: thoraco-lumbar ROM normal, No pain with thoraco-lumbar ROM, No thoracic spinal tenderness and No lumbar spinal tenderness Extrem General: Yes normal to inspection, No edema and No calf tenderness Skin General: warm and dry. Normal skin color. Normal skin turgor Neuro General: patient oriented x3, gait normal and no focal neuro deficit Cranial nerves: Yes Equal, round and reactive pupils present Cognition (Neuro): normal cognition Gait exam (Neuro): Normal gait present Sensory Exam: No Sensory deficit (Neuro) Psych Appearance: grossly normal Affect: normal affect Attitude: cooperative Thought process: Normal thought process present Assessment and Plan Assessment & Plan (1) Viral URI with cough: Code(s): J06.9 - Acute upper respiratory infection, unspecified Plan: Likely viral illness though possibly allergies. No exam evidence of bacterial infection Viral illness There is no antibiotic medication for viruses.? They must run their course.? Most average 5-7 days but 7-10 days is not uncommon and up to 14 days is still possible.? A cough is often the last symptom to resolve and this can last for weeks in some cases. Rest Hydrate well -? Drink plenty of fluids.? Especially water. Tylenol or ibuprofen for muscle aches, headache, fever/discomfort Return for new or worsening symptoms Verbalized understanding and agreed with treatment plan. (2) Bilateral leg cramps: Code(s): R25.2 - Cramp and spasm Plan: Chronic bilateral leg cramps Reports low potassium, 3.1, at recent hospital visit. She was informed that is likely the cause of her cramps Will check CBC level Stretching, massage, and warm compresses encouraged May take Tylenol ibuprofen for pain or discomfort Follow-up with worsening or new symptoms Verbalized understanding and agreed with treatment plan Orders: Orders Complete Blood Count no Diff Today R25.2 - Cramp and spasm Coding Level of Care Code Est Pt Level 3 (12258) Diagnoses Viral URI with cough J06.9 Bilateral leg cramps R25.2
== END 2023-12-11 13:45 | disposition home or self-care (01) ==
PROVIDERS: PCP Nurse Practitioner Family; Visit Provider Nurse Practitioner Family
DX: J06.9 Acute upper respiratory infection, unspecified (principal); R25.2 Cramp and spasm
CPT/HCPCS: 99213

== ENCOUNTER 2024-05-21 10:50 | Outpatient (AMB) | payer OTHER, SELFPAY ==
--- NOTE | 2024-05-21 10:51 | A.OFFPC_ITS ---
Vital Signs 05/21/24 11:02 Height 5 ft 3 in Weight 125 lb 2 oz BMI 22.2 BP 100/64 Blood Pressure Location Lt brachial Position Sitting Respiration 16 Pulse 78 Pulse Source Pulse Oximeter Temp 98.1 F Temp Source Temporal Artery Scan Pulse Oximetry (%) 99 Oxygen Delivery Method Room Air Intake Visit Reasons: CPE Intake Note: patient here for CPE. 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 Accompanied by: Spouse Is last menstrual period known: Yes Last menstrual period: 05/04/24 Post menopausal: No Patient : No Allergies cat dander Allergy (Severe, Verified 05/21/24 11:07) Severe Congestion cranberry Allergy (Severe, Verified 05/21/24 11:07) Itchy Throat dog dander Allergy (Severe, Verified 05/21/24 11:07) Severe Congestion Seasonal Allergies Allergy (Intermediate, Verified 05/21/24 11:07) Itchy Eyes Medication List - Last Reconciled 05/21/24 by Jorge Eastman CNP albuterol sulfate 90 mcg/actuation 2 puffs inhalation Q4-6H PRN levalbuterol HCl 1.25 mg (0.5 mL) inhalation Q4-6H PRN levalbuterol tartrate 45 mcg/actuation 2 puffs inhalation Q4-6H PRN polyethylene glycol 3350 (Miralax) 17 grams PO DAILY PRN Tobacco use date assessed: 05/21/24 Dental Screening Dental Screen Date: 05/21/24 Did you have a dental visit in the last 12 months?: Yes Did you have a dental problem in the last 6 months where you did not have access to dental care?: No Was dental information given to patient?: Patient has dentist HPI HPI Comments History of Present Illness Details 23-year-old female presents for an exten ded physical exam She has PMH significant for asthma, GERD, IBS, bronchitis, anemia, anxiety, depression, and PTSD She is on albuterol inhaler and MiraLax No acute symptoms She continues to see her therapist weekly She is followed by [facility] pulmonology and gastroentrology She has has never had a pap smear test done. She is followed by [facility] and will call to schedule an appointment for a pap smear test Non smoker. Does not drink alcohol. No recreational drug use She is sexual active, in a monogamous relationship, has no concerns for STDs [facility] Medical History Ovarian cyst Bronchitis Vaping-related disorder Surgical History No pertinent past surgical history Family History (Updated 05/21/24 @ 11:10 by Leena Hannah) Mother No problems noted. 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 ) Female Reproductive History Menstrual Date of last menstrual period: 05/04/24 Date of last pap smear: 07/28/22 History of abnormal pap smear: No Questionnaire PHQ-9 Over the last 2 weeks, how often have you been bothered by any of the following problems? 1. Little interest or pleasure in doing things: not at all 2. Feeling down, depressed, or hopeless: not at all 3. Trouble falling or staying asleep, or sleeping too much: not at all 4. Feeling tired or having little energy: not at all 5. Poor appetite or overeating: not at all 6. Feeling bad about yourself - or that you are a failure or have let yourself or your family down: not at all 7. Trouble concentrating on things, such as reading the newspaper or watching television: not at all 8. Moving or speaking so slowly that other people could have noticed. Or the opposite - being so fidgety or restless that you have been moving around a lot more than usual: not at all 9. Thoughts that you would be better off or of hurting yourself in some way: not at all Total score: 0 Depression Screening Interpretation: Negative Depression Screening Done: Yes 48224 - PHQ-9 Billing: Yes Source: Developed by Drs. Mk Joyner, Charanjit Cutler and colleagues, with an educational marlon from [employer]. Thrive Questionnaire Date Thrive assessed: 05/21/24 I am a: Patient What is your living situation today?: I have a steady place to live Within the past 12 months, did the food you bought not last and you didn't have the money to get more?: Never true Within the past 12 months, did you worry whether your food would run out before you got money to buy more?: Never true Do you have trouble paying for medicines?: No Do you have trouble getting transportation to medical appointments?: No Do you have trouble paying your heating and electricity bill?: No Do you have trouble taking care of your child, family member or friend?: No Do you have trouble with day-to-day activities such as bathing, preparing meals, shopping, managing finances, etc.?: No Are you currently unemployed and looking for a job?: No Are you interested in more education?: No Please select the resources that you would like help with: None Currently or been in a relationship where the following occur: No concerns reported THRIVE Score: 0 AUDIT C Alcohol Use Questionnaire (AUDIT-C) 1. How often do you have a drink containing alcohol?: Never 3. How often do you have six or more drinks on one occasion?: Never Total Score: 0 CHANDRAKANT-7 AMB Questionnaire CHANDRAKANT-7 Date CHANDRAKANT - 7 assessed: 05/21/24 Feeling nervous, anxious, or on edge: 0 = Not at all Not being able to stop or control worryin = Not at all Worrying too much about different things: 0 = Not at all Trouble relaxin = Not at all Being so restless that it is hard to sit still: 0 = Not at all Becoming easily annoyed or irritable: 0 = Not at all Feeling afraid as if something awful might happen: 0 = Not at all Total CHANDRAKANT-7 score (0-4 normal; 5-9 mild; 10-14 moderate; 15-21 severe): 0 Source: Developed by Drs. Mk Joyner, Charanjit Cutler and colleagues, with an educational marlon from [employer]. CHANDRAKANT-7 Assessment Billing CHANDRAKANT-7 Assessment Tool: CHANDRAKANT-7 Assessment 74793 ACT Questionnaire In the past 4 weeks, how much of the time did your asthma keep you from getting as much done at work, school or at home?: Some of the time During the past 4 weeks, how often have you had shortness of breath?: 1-2 times a week During the past 4 weeks, how often did your asthma symptoms wake you up at night or earlier than usual in the morning?: Not at all During the past 4 weeks, how often have you had to use your rescue inhaler or nebulizer medication?: Not at all How would you rate your asthma control during the past 4 weeks?: Completely controlled Score: 22 Review of Systems Const Details: Denies chills, Denies fatigue, Denies fever(s), Denies headache(s) and Denies weakness HEENT Denies change in vision, Denies dizziness, Denies headache(s), Denies hearing loss, Denies nasal congestion, Denies sinus pain, Denies sinus pressure and Denies sore throat Card Denies chest pain, Denies lightheadedness, Denies dyspnea and Denies other (palpitations) Resp Denies cough, Denies dyspnea and Denies wheezing GI Denies abdominal pain, Denies melena, Denies hematochezia, Denies change in bowel habits, Denies dyspepsia and Denies nausea Denies hematuria and Denies dysuria Musc Denies abnormal gait, Denies myalgias, Denies arthralgias, Denies numbness and Denies tingling Skin/Breast Denies rash, Denies unusual bruising and Denies wounds Neuro Denies abnormal gait, Denies dizziness, Denies headache(s), Denies memory loss, Denies numbness, Denies Sensory deficit (Neuro), Denies tingling and Denies weakness Psych Denies anxiety, Denies depression and Denies memory loss Endo Denies cold intolerance, Denies fatigue, Denies heat intolerance, Denies polydipsia and Denies polyuria Schuyler/Lymph Denies easy bleeding and Denies easy bruising Aller/Immun Denies wheezing Physical exam (Primary Care) Vital Signs: Last Vital Signs Temp 98.1 F 05/21/24 11:02 Pulse 78 05/21/24 11:02 Resp 16 05/21/24 11:02 BP 100/64 05/21/24 11:02 Pulse Ox 99 05/21/24 11:02 Oxygen Delivery Method Room Air 05/21/24 11:02 BMI result Body Mass Index 22.2 Tobacco/Smoking Status: Tobacco use Status Tobacco use date assessed 04/13/23 05/21/24 10:54 Patient Tobacco Use Status Never used Tobacco 05/21/24 10:54 Tobacco use type Pipe 05/21/24 10:54 e-Cigarette/Vaping Use Former Use 05/21/24 10:54 Depression Screening Interpretation: Negative Thrive Assessment: Date of Thrive Assessment Date Thrive assessed 04/13/23 05/21/24 10:54 Currently or been in a relationship where the following occur: No concerns reported Const Other: General: no acute distress, well developed, alert and awake Nutritional Appearance: well nourished Orientation/consciousness: patient oriented x3 HENMT Head: Yes normocephalic and Yes atraumatic Ears: hearing grossly normal bilaterally and TM's normal bilaterally General nose exam: Normal external nose present and Normal nares present Mouth: Normal oral and palatal mucosa present and moist mucous membranes Teeth and gingiva: dentition normal Throat: Yes oropharynx normal Eyes Pupils: Equal, round and reactive pupils present and Pupil accommodation reflex normal EOM: EOMs intact bilaterally Neck Neck: Yes normal visual inspection, Yes no lymphadenopathy and Yes trachea midline Thyroid: Thyroid normal Carotids: no bruits Lymphatic: no lymphadenopathy noted Chest Chest palpation & inspection: normal inspection of the chest Resp Effort & Inspection: normal respiratory effort Auscultation: clear to auscultation bilaterally Cardio Rate: regular rate Rhythm: regular rhythm Heart sounds: S1 normal heart sound present, S2 normal heart sound present, no gallops, no murmurs and no rubs Bruits: no abdominal aortic bruits and no carotid bruits GI Palpation (GI): No Abdominal aortic bruit present, Soft to palpation, nontender, No hepatosplenomegaly present and No Rebound tenderness present Auscultation: normal bowel sounds General: Yes no CVA tenderness Back/Spine/Pelvis Back: no CVA tenderness Cervical Spine: cervical ROM normal and No Cervical spine tenderness Thoracic/Lumbar Spine: thoraco-lumbar ROM normal, No pain with thoraco-lumbar ROM, No thoracic spinal tenderness and No lumbar spinal tenderness Skin General: warm and dry. Normal skin color. Normal skin turgor Lesions: no lesions Rashes: no rashes Trauma: no lacerations or abrasions Wounds: no wounds Nails: normal Neuro General: patient oriented x3, gait normal and CN's II-XI intact bilaterally Cranial nerves: Yes Equal, round and reactive pupils present Cognition (Neuro): normal cognition Gait exam (Neuro): Normal gait present Motor exam (neuro): 5/5 motor strength present throughout Sensory Exam: No Sensory deficit (Neuro) Deep tendon reflexes (DTR's): Right patellar reflex intensity grade: 2+ and Left patellar reflex intensity grade: 2+ Extrem General: Yes normal to inspection, No edema and No calf tenderness Psych Appearance: grossly normal Affect: normal affect Attitude: cooperative Thought process: Normal thought process present Assessment and Plan Assessment & Plan (1) Normal physical examination, routine: Code(s): Z00.00 - Encounter for general adult medical examination without abnormal findings Plan: No significant physical restrictions or limitations noted Continue current treatment regimen Healthy diet and routine exercise encouraged Advised to get lab work done and follow-up for telehealth visit 2-3 weeks Return with symptoms or concerns Verbalized understanding and agreed with the treatment plan (2) Laboratory tests ordered as part of a complete physical exam (CPE): Code(s): Z00.00 - Encounter for general adult medical examination without abnormal findings Plan: Fasting labs ordered as part of a complete physical exam. Advised to fast for at least 10 hours before getting labs drawn. May drink water Verbalized understanding and agreed with treatment plan. Orders: Orders Complete Blood Count Auto Diff Today Z00.00 - Encounter for general adult medical examination without abnormal findings Comprehensive [place]. Panel Fast Today Z00.00 - Encounter for general adult medical examination without abnormal findings TSH reflex Free T4 Today Z00.00 - Encounter for general adult medical examination without abnormal findings UA CC w/rflx Micro + Cult Today Z00.00 - Encounter for general adult medical examination without abnormal findings Lipid Panel Today Z00.00 - Encounter for general adult medical examination without abnormal findings Coding Level of Care Code Est Pt Prev Care 18-39y(10208) Diagnoses Normal physical examination, routine Z00.00 Laboratory tests ordered as part of a complete physical exam (CPE) Z00.00 Additional Codes CHANDRAKANT-7 Assessment Billing - CHANDRAKANT-7 Assessment Tool: CHANDRAKANT-7 Assessment [id number] ([id number])
[2024-05-21 11:02] VITALS: BP 100/64; PULSE 78; RESP 16; TEMP 36.7; O2SAT 99; BMI 22.2
== END 2024-05-21 11:26 | disposition home or self-care (01) ==
PROVIDERS: PCP Nurse Practitioner Family; Visit Provider Nurse Practitioner Family
DX: Z00.00 Encounter for general adult medical examination without abnormal findings (principal)
CPT/HCPCS: 99395

== ENCOUNTER 2024-05-29 09:27 | Outpatient (REF) | payer OTHER, SELFPAY ==
[2024-05-29 17:34] LABS: MANUAL DIFF FLAG NO
[2024-05-29 17:44] LABS: Basophils Percent Auto 0.6 % (0-2); Eosinophils Percent Auto 0.8 % (0-4); Hematocrit 36.9 % (37.0-47.0); Hemoglobin 12.8 g/dl (12.0-16.0); Imm Gran Abs Auto 0.02 X10*3/uL (0.00-0.03); Imm Gran Pct Auto 0.4 % (0.0-0.4); Lymphocytes Absolute Auto 2.9 X10*3/uL (1.2-4.9); Lymphocytes Percent Auto 56.1 % (20-40); Mean Corpuscular HGB Conc 34.7 g/dl (31.0-35.0); Mean Corpuscular Hemoglobin 29.4 pg (27.0-33.0); Mean Corpuscular Volume 84.6 fL (80.0-98.0); Mean Platelet Volume 9.4 fL (9.4-12.3); Monocytes Absolute Auto 0.5 X10*3/uL (0.1-1.2); Monocytes Percent Auto 8.9 % (2-11); Neutrophils Absolute Auto 1.7 x10*3/uL (2.0-8.3); Neutrophils Percent Auto 33.2 % (45-73); Platelet Count 256 X10*3/uL (160-400); Red Blood Count 4.36 X10*6/uL (4.20-5.50); White Blood Count 5.1 X10*3/uL (4.8-10.8)
[2024-05-29 17:47] LABS: Appearance Urine Turbid; Color Urine Yellow; Glucose Urine UA Negative (Negative); Leukocyte Esterase Urine Negative (Negative); Nitrite Urine Negative (Negative); PH 5.5 (5.0-9.0); Urine Blood Negative (Negative); Urine Ketones Negative (Negative); Urine Protein Negative (Neg-Trace)
[2024-05-29 18:25] LABS: Alanine Aminotransferase 13 U/L (0-31); Alkaline Phosphatase 46 U/L (39-117); Anion Gap 12 (12-20); Aspartate Amino Transferase 17 U/L (5-31); Bilirubin Total 0.4 mg/dL (0.0-1.0); Blood Urea Nitrogen 8 mg/dL (9-16); Carbon Dioxide 23 mmol/L (22-29); Chloride 106 mmol/L (96-108); Cholesterol 148 mg/dL (<200); Estimated Glomerular Filt Rate > 60; Glucose Fasting 83 mg/dL (60-99); HDL Cholesterol 40 mg/dL (>40); LDL Cholesterol Calculated 99 mg/dL (<100); Potassium 4.1 mmol/L (3.3-5.1); Sodium 137 mmol/L (135-145); Triglycerides 46 mg/dL (<150)
[2024-05-29 18:29] LABS: TSH reflex Free T4 1.45 uIU/mL (0.32-4.0)
== END 2024-05-29 09:28 | disposition home or self-care (01) ==
LOC: HO.HKASLDS 09:27
PROVIDERS: Visit Provider Nurse Practitioner Family
DX: Z00.00 Encounter for general adult medical examination without abnormal findings (principal)
CPT/HCPCS: 36415; 80053; 80061; 81003; 84443; 85025

== ENCOUNTER 2025-01-04 09:35 | Outpatient (REF) | payer OTHER, SELFPAY ==
[2025-01-04 10:00] LABS: Hematocrit 36.1 % (37.0-47.0); Hemoglobin 12.6 g/dl (12.0-16.0); Mean Corpuscular HGB Conc 34.9 g/dl (31.0-35.0); Mean Corpuscular Hemoglobin 29.4 pg (27.0-33.0); Mean Corpuscular Volume 84.1 fL (80.0-98.0); Mean Platelet Volume 8.7 fL (9.4-12.3); Platelet Count 263 X10*3/uL (160-400); Red Blood Count 4.29 X10*6/uL (4.20-5.50); Red Cell Distribution Width 12.2 % (11.0-16.0); White Blood Count 5.7 X10*3/uL (4.8-10.8)
== END 2025-01-04 09:36 | disposition home or self-care (01) ==
LOC: HO.LAB 09:35
PROVIDERS: PCP Nurse Practitioner Family; Visit Provider Nurse Practitioner Family
DX: R25.2 Cramp and spasm (principal)
CPT/HCPCS: 36415; 85027

== ENCOUNTER 2025-01-07 10:48 | Outpatient (AMB) | payer OTHER, SELFPAY ==
--- NOTE | 2025-01-07 11:00 | MHC.PC.OV ---
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 Is last menstrual period known: Yes Last menstrual period: 12/14/24 Post menopausal: No Patient : No Allergies cat dander Allergy (Severe, Verified 01/07/25 11:29) Severe Congestion cranberry Allergy (Severe, Verified 01/07/25 11:29) Itchy Throat dog dander Allergy (Severe, Verified 01/07/25 11:29) Severe Congestion Seasonal Allergies Allergy (Intermediate, Verified 01/07/25 11:29) Itchy Eyes Medication List - Last Reconciled 01/07/25 by Jorge Eastman CNP albuterol sulfate 90 mcg/actuation 2 puffs inhalation Q4-6H PRN levalbuterol HCl 1.25 mg (0.5 mL) inhalation Q4-6H PRN levalbuterol tartrate 45 mcg/actuation 2 puffs inhalation Q4-6H PRN Tobacco use date assessed: 01/07/25 Dental Screening Dental Screen Date: 01/07/25 Did you have a dental visit in the last 12 months?: Yes Did you have a dental problem in the last 6 months where you did not have access to dental care?: No Was dental information given to patient?: Patient has dentist HPI HPI Comments History of Present Illness Details 24-year-old female, accompanied by her , presents with complaints of cramping to both legs. She experienced cramping to were entire legs but mostly to her calves. Her symptoms have been persistent for the past 2 weeks. She also notes purple discoloration to her feet with prolonged sitting. She admits to adequate hydration. She denies currently treatment for her symptoms. She denies other symptoms. [facility] Medical History Ovarian cyst Bronchitis Vaping-related disorder Surgical History No pertinent past surgical history Family History (Updated 05/21/24 @ 11:10 by Leena Hannah MA) Mother No problems noted. 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 ) Female Reproductive History Menstrual Date of last menstrual period: 12/14/24 Questionnaire PHQ-9 Over the last 2 weeks, how often have you been bothered by any of the following problems? 1. Little interest or pleasure in doing things: not at all 2. Feeling down, depressed, or hopeless: not at all 3. Trouble falling or staying asleep, or sleeping too much: several days 4. Feeling tired or having little energy: several days 5. Poor appetite or overeating: several days 6. Feeling bad about yourself - or that you are a failure or have let yourself or your family down: not at all 7. Trouble concentrating on things, such as reading the newspaper or watching television: not at all 8. Moving or speaking so slowly that other people could have noticed. Or the opposite - being so fidgety or restless that you have been moving around a lot more than usual: not at all 9. Thoughts that you would be better off or of hurting yourself in some way: not at all Total score: 3 Depression Screening Interpretation: Negative Depression Screening Done: Yes Source: Developed by Drs. Mk Joyner, Priscilla Brock, Charanjit Rajan and colleagues, with an educational marlon from [employer]. Thrive Questionnaire Date Thrive assessed: 05/21/24 I am a: Patient What is your living situation today?: I have a steady place to live Within the past 12 months, did the food you bought not last and you didn't have the money to get more?: Never true Within the past 12 months, did you worry whether your food would run out before you got money to buy more?: Never true Do you have trouble paying for medicines?: No Do you have trouble getting transportation to medical appointments?: No Do you have trouble paying your heating and electricity bill?: No Do you have trouble taking care of your child, family member or friend?: No Do you have trouble with day-to-day activities such as bathing, preparing meals, shopping, managing finances, etc.?: No Are you currently unemployed and looking for a job?: No Are you interested in more education?: No Please select the resources that you would like help with: None Currently or been in a relationship where the following occur: No concerns reported THRIVE Score: 0 AUDIT C Alcohol Use Questionnaire (AUDIT-C) 1. How often do you have a drink containing alcohol?: Never Total Score: 0 CHANDRAKANT-7 AMB Questionnaire CHANDRAKANT-7 Date CHANDRAKANT - 7 assessed: 05/21/24 Feeling nervous, anxious, or on edge: 0 = Not at all Not being able to stop or control worryin = Not at all Worrying too much about different things: 0 = Not at all Trouble relaxin = Not at all Being so restless that it is hard to sit still: 0 = Not at all Becoming easily annoyed or irritable: 0 = Not at all Feeling afraid as if something awful might happen: 0 = Not at all Total CHANDRAKANT-7 score (0-4 normal; 5-9 mild; 10-14 moderate; 15-21 severe): 0 Source: Developed by Drs. Mk Joyner, Priscilla Brock, Charanjit Rajan and colleagues, with an educational marlon from [employer]. Review of Systems Const Details: Const Denies chills, Denies fatigue, Denies fever(s), Denies headache(s) and Denies weakness ENT Denies dizziness and Denies headache(s) Card Denies chest pain, Denies lightheadedness, Denies dyspnea and Denies other (Palpitations) Resp Denies cough, Denies dyspnea, Denies wheezing and Denies other ( shortness of breath) GI Denies abdominal pain, Denies melena, Denies hematochezia, Denies change in bowel habits, Denies dyspepsia and Denies nausea Denies hematuria and Denies dysuria Musc Reports BLE cramps, Denies abnormal gait, Denies myalgias, Denies arthralgias, Denies numbness and Denies tingling Skin/Breast Denies rash, Denies unusual bruising and Denies wounds Neuro Denies abnormal gait, Denies dizziness, Denies headache(s), Denies memory loss, Denies numbness, Denies Sensory deficit (Neuro), Denies tingling and Denies weakness Psych Denies anxiety, Denies depression, Denies memory loss Endo Denies cold intolerance, Denies fatigue, Denies heat intolerance, Denies polydipsia and Denies polyuria Aller/Immun Denies wheezing Physical exam (Primary Care) Vital Signs: Last Vital Signs Temp 97.8 F 01/07/25 11:04 Pulse 75 01/07/25 11:04 Resp 16 01/07/25 11:04 BP 110/56 L 01/07/25 11:04 Pulse Ox 100 01/07/25 11:04 Oxygen Delivery Method Room Air 01/07/25 11:04 BMI result Body Mass Index 24.6 Tobacco/Smoking Status: Tobacco use Status Tobacco use date assessed 01/07/25 01/07/25 11:08 Patient Tobacco Use Status Never used Tobacco 01/07/25 11:02 Tobacco use type 05/21/24 11:26 e-Cigarette/Vaping Use Former Use 01/07/25 11:02 PHQ-9: PHQ-9 Score PHQ-9: Total score 3 01/07/25 11:02 Depression Screening Interpretation: Negative Thrive Assessment: Date of Thrive Assessment Date Thrive assessed 05/21/24 01/07/25 11:02 Currently or been in a relationship where the following occur: No concerns reported Const Other: General: no acute distress and well developed Nutritional Appearance: well nourished Orientation/consciousness: patient oriented x3 HENMT Head: Yes normocephalic and Yes atraumatic Eyes General: appearance normal, both eyes and all related structures Pupils: Equal, round and reactive pupils present EOM: EOMs intact bilaterally Resp Effort & Inspection: normal respiratory effort Auscultation: clear to auscultation bilaterally Cardio Rate: regular rate Rhythm: regular rhythm Heart sounds: S1 normal heart sound present, S2 normal heart sound present, no gallops, no murmurs and no rubs GI Palpation (GI): No Abdominal aortic bruit present, Soft to palpation, nontender, No hepatosplenomegaly present and No Rebound tenderness present Auscultation: normal bowel sounds General: Yes no CVA tenderness Back/Spine/Pelvis Back: no CVA tenderness Cervical Spine: cervical ROM normal and No Cervical spine tenderness Thoracic/Lumbar Spine: thoraco-lumbar ROM normal, No pain with thoraco-lumbar ROM, No thoracic spinal tenderness and No lumbar spinal tenderness Extrem General: Yes normal to inspection, No edema and No calf tenderness Skin General: warm and dry. Normal skin color. Normal skin turgor Neuro General: patient oriented x3, gait normal and no focal neuro deficit Cranial nerves: Yes Equal, round and reactive pupils present Cognition (Neuro): normal cognition Gait exam (Neuro): Normal gait present Sensory Exam: No Sensory deficit (Neuro) Psych Appearance: grossly normal Affect: normal affect Attitude: cooperative Thought process: Normal thought process present Coding Level of Care Code Est Pt Level 4 (72766) Diagnoses Bilateral leg cramps R25.2 Assessment & Plan Assessment & Plan (1) Bilateral leg cramps: Code(s): R25.2 - Cramp and spasm Category: Medical Plan: Reports persistent bilateral leg clamps x2 weeks, worse to calves. Also, purple discoloration of both feet with prolonged sitting. Normal exam of bilateral lower extremities. Positive PT/DP pulses bilaterally. No discoloration noted. Will trial magnesium 400 mg daily for cramps. Adequate hydration, massage, warm/cool compresses and routine exercise encouraged. Will check CBC, CMP, TSH/T4, and magnesium levels. Will make changes as needed. Schedule an extended physical exam on or after 05/21/2025. Return with symptoms or concerns. Verbalized understanding and agreed with treatment plan. Orders: Orders Complete Blood Count no Diff Today R25.2 - Cramp and spasm TSH reflex Free T4 Today R25.2 - Cramp and spasm Comprehensive [place]. Panel Fast Today R25.2 - Cramp and spasm Magnesium Today R25.2 - Cramp and spasm Medications: New magnesium oxide 400 mg PO DAILY 30 days 30 tabs 1RF
[2025-01-07 11:04] VITALS: BP 110/56; PULSE 75; RESP 16; TEMP 36.6; O2SAT 100; BMI 24.6
--- OUTSIDE RECORDS SUMMARY | 2025-01-07 11:56 | XMS_ITS | Clinical Summary ---
Author Organization [employer] Address [address] [facility] [address] [place] [address] Care Team Providers Care Pin Inserter Name Role Phone Unavailable Primary Care Provider Unavailabl e Allergies No known active allergies Medications Sod Fluoride-Potass ium Nitrate 1.1-5 % pasteIndication s:Dental caries [place] teeth for 2 minutes, morning and night. Spit, do not rinse. Do not eat or drink anything for 30 minutes following brushing. 112 g 3 4 Active Active Problems No known active problems Social History Tobacco Use Types Packs/Day Years Used Date Smoking Tobacco: Never Smokeless Tobacco: Never Tobacco Cessation:Counseling Given: Not Answered Alcohol Use Standard Drinks/Week Comments Never 0 (1 standard drink = 0.6 oz pur e alcohol) Comments Unknown Sex and Gender Information Value Date Recorded Sex Assigned at Female 09/19/2022 10:31 AM EDT Legal Sex Female 10:31 AM EDT Gender Identity Female 09/19/2022 10:31 AM EDT Sexual Orientation Straight 09/19/2022 10 :31 AM EDT Last Filed Vital Signs Vital Sign Reading Time Taken Comments Blood Pressure 120/80 01/03/2024 2:40 PM EST Pulse - - Temperature - - Respiratory Rate - - Oxygen Saturation - - Inhaled Oxygen Concentration - - Weight - - Height - - Body Mass Index - - Plan of Treatment Health Maintenance Due Date Last Done Comments Chlamydia and Gonorrhea Screening 2002 Depression Screening 2002 HIV Screening 2002 SDOH Screening 2002 Alcohol/Substance Use Screening 2014 Family Planning (PISQ) 2017 HPV Vaccines (1 - 3-dose series) 2017 Dental Prophylaxis 01/05/2020 07/04/2019, 1 01/08/2018, 03/24/2017, Additional history exists Hepatitis C Screening 2020 DTaP/Tdap/Td Vaccines (1 - Tdap) 2021 Hepatitis B Vaccines (1 of 3 - 19+ 3-dose series) 2021 Pneumococcal Vaccine: Pediatrics (0 to 5 Years) and At-Risk Patients (6 to 49) Years) (1 of 2 - PCV) 2021 Pap Smear 2023 Dental Oral Exam 06/08/2024 12/08/2023, , 11/07/2018, Additional history exists COVID-19 Vaccine (1 - 2023- season) 2024 Influenza Vaccine (#1) 2024 Dental X-Ray: Bitewings 12/09/2024 12/08/19 24, 12/07/2023, 07/04/2019, Additional history exists Tobacco Screening 01/03/2025 01/03/2024 Dental X-Ray: Full Mouth 12/09/2026 12/08/2023, 07/0 03/2022 Zoster Vaccines (1 of 2) 2052 RSV Patients and Patients Aged 60 years or older (1 - 1-dose 75+ series) 2077 HIB Vaccines Aged Out No longer eligi ble based on patient's age to complete this topic Hepatitis A Vaccines Aged Out No long er eligible based on patient's age to complete this topic IPV Vaccines Aged Out No longer eligi ble based on patient's age to complete this topic Meningococcal Vaccine Aged Out No angel sudarshan eligible based on patient's age to complete this topic RSV under 20 months Aged Out No longe r eligible based on patient's age to complete this topic Rotavirus Vaccines Aged Out No longer eligible based on patient's age to complete this topic Procedures Procedure Name Priority Date/Time Associated Diagnosis Comments INTRAORAL - COMPLETE SERIES OF RADIOGRAPHIC IMAGES Routine 12/08/2023 2:00 PM EST Dental caries Gingivitis COMPREHENSIVE ORAL EVALUATION - NEW OR ESTABLISHED PATIENT Routine 12/08/2023 2:00 PM EST Dental caries Gingivitis PROPHYLAXIS - ADULT Routine 07/04/2019 1 2:00 AM EDT from Last 3 Months or Most Recently Relevant to Health Maintenance Insurance [place] STAND ADULT
--- OUTSIDE RECORDS SUMMARY | 2025-01-07 11:56 | XMS_ITS | Clinical Summary ---
Author Organization [facility] ity Address [address] [place] [address] Care Team Providers Care Molded Goods Spot Picker Name Role Phone Unavailable Primary Care Provider Unavailabl e Social History Tobacco Use Types Packs/Day Years Used Date Smoking Tobacco: Never Assessed Comments Unknown Sex and Gender Information Value Date Recorded Sex Assigned at Not on file Legal Sex Female 11:07 AM EDT Gender Identity Not on file Sexual Orientation Not on file Plan of Treatment Health Maintenance Due Date Last Done Comments Gonorrhea/Chlamydia Screening 2002 HPV Vaccines (1 - 3-dose series) 2017 Meningococcal B Vacine (1 of 2 - Standard) 2018 DTaP,Tdap,and Td Vaccines (1 - Tdap) 2021 Hepatitis B Vaccines (1 of 3 - 19+ 3-dose series) 2021 Cervical Cancer Screening: P ap Smear 2023 Depression Screening 06/12/2024 HIV Screening 06/12/2024 Hepatitis C Screening 06/12/2024 Social Influencers of Health Screening 06/12/2024 COVID-19 Vaccine (1 - 2023-2 5 season) 2024 Influenza Vaccine (#1) 2024 HIB Vaccines Aged Out No longer eligi ble based on patient's age to complete this topic Hepatitis A Vaccines Aged Out No long er eligible based on patient's age to complete this topic IPV Vaccines Aged Out No longer eligi ble based on patient's age to complete this topic MMR Vaccines Aged Out No longer eligi ble based on patient's age to complete this topic Meningococcal ACWY Vaccine Aged Out N o longer eligible based on patient's age to complete this topic Pneumococcal Vaccine: Pediat rics (0 to 5 Years) and At-Risk Patients (6 to 64 Years) Aged Out No longer eligible b ased on patient's age to complete this topic RSV Immunization Patients Un mathew 20 months Aged Out No longer eligible b ased on patient's age to complete this topic Varicella Vaccines Aged Out No longer eligible based on patient's age to complete this topic
== END 2025-01-07 11:41 | disposition home or self-care (01) ==
PROVIDERS: PCP Nurse Practitioner Family; Visit Provider Nurse Practitioner Family
DX: R25.2 Cramp and spasm (principal)

== ENCOUNTER → 2025-01-07 10:48 | Outpatient (BNVA) | payer OTHER, SELFPAY | PROVIDERS: PCP Nurse Practitioner Family; Visit Provider Nurse Practitioner Family | DX: R25.2 Cramp and spasm (principal) | CPT/HCPCS: 99212 ==

== ENCOUNTER 2025-01-25 07:47 | Outpatient (REF) | payer OTHER, SELFPAY ==
--- OUTSIDE RECORDS SUMMARY | 2025-01-25 07:49 | XMS_ITS | Clinical Summary ---
Author Organization [employer] Address [address] [facility] [address] [place] [address] Care Team Providers Care Pricing Director Name Role Phone Unavailable Primary Care Provider Unavailabl e Allergies No known active allergies Medications Sod Fluoride-Potass ium Nitrate 1.1-5 % pasteIndication s:Dental caries [place] teeth for 2 minutes, morning and night. Spit, do not rinse. Do not eat or drink anything for 30 minutes following brushing. 112 g 3 4 Active acetaminophen (Tylenol) 500 MG tabletIndicatio ns:Dental caries into pulp Take 1 tablet (500 mg) by mouth every 6 (six) hours if needed for mild pain for up to 20 doses. 20 tablet 5 Active ibuprofen 600 MG tabletIndicatio ns:Dental caries into pulp Take 1 tablet (600 mg) by mouth every 6 (six) hours if needed for mild pain for up to 20 doses. 20 tablet 5 Active amoxicillin (Amoxil) 500 MG capsuleIndicati ons:Dental caries into pulp Take 1 capsule (500 mg) by mouth every 8 (eight) hours for 7 days. 21 capsule 5 01/17/20 25 Active Problems Problem Noted Date Diagnosed Date Dental caries into pulp 01/10/2025 Encounters Date Type Department Care Team Description 01/10/2025 11:30 AM EST Office Visit [facility] [address] [place], [place] [phone] Tima Ramirez DDS Dental caries into pulp (Primary Dx) from Last 3 Months Social History Tobacco Use Types Packs/Day Years [...] Reading Time Taken Comments Blood Pressure 120/80 01/10/2025 11:50 AM EST Pulse - - Temperature - - Respiratory Rate - - Oxygen Saturation - - Inhaled Oxygen Concentration - - Weight - - Height - - Body Mass Index - - Plan of Treatment Upcoming Encounters Date Type Department Care Team (Late st Contact Info) Description 02/07/2025 3:00 PM EDT Office Visit [facility] [address] [place] [address] Parker Muse, DMD [address] [place] [address] Health Maintenance Due Date Last Done Comments [...] 12/07/2023, 07/04/2019, Additional history exists Tobacco Screening 01/10/2026 01/10/2025 Dental X-Ray: Full Mouth 01/11/2028 025, 12/08/2023, 05/24/2022 Zoster Vaccines (1 of 2) 2052 RSV [...] Procedure Name Priority Date/Time Associated Diagnosis Comments LIMITED ORAL EVALUATION - PROBLEM FOCUSED Routine 01/10/2025 11:30 AM EST CASE PRESENTATION, DETAILED AND EXTENSIVE TREATMENT PLANNING Routine 01/10/2025 11:30 AM EST PANORAMIC RADIOGRAPHIC IMAGE Routine 01/10/2025 11:30 AM EST INTRAORAL - COMPLETE SERIES OF RADIOGRAPHIC IMAGES Routine 12/08/2023 2:00 PM EST Dental caries Gingivitis COMPREHENSIVE ORAL EVALUATION - NEW OR ESTABLISHED PATIENT Routine 12/08/2023 2:00 PM EST Dental caries Gingivitis PROPHYLAXIS - ADULT Routine 07/04/2019 1 2:00 AM EDT from Last 3 Months or Most Recently Relevant to Health Maintenance Insurance [facility] MEDICAID STAND ADULT
--- OUTSIDE RECORDS SUMMARY | 2025-01-25 07:49 | XMS_ITS | Clinical Summary ---
Author Organization [facility] ity Address [address] [place] [address] Care Team Providers Care Car Lubricator Name Role Phone Unavailable Primary Care Provider [...]
--- OUTSIDE RECORDS SUMMARY | 2025-01-25 07:49 | XMS_ITS | Encounter Summary ---
Author Organization [facility] Address [address] [facility] [address] [place] [address] Care Team Providers Care Faculty Support Coordinator Name Role Phone Unavailable Primary Care Provider Unavailabl e Reason for Visit * Reason Comments Dental Pain Encounter Details Date Type Department Care Team (Late st Contact Info) Description 01/10/2025 11:30 AM EST Office Visit [facility] ADULT [facility] [address] [place], [place] [phone] Tima Ramirez DDS [address] [place] [address] Dental caries into pulp (Primary Dx) Social History Tobacco Use Types Packs/Day Years Used Date Smoking Tobacco: Never Smokeless Tobacco: Never Alcohol Use Standard Drinks/Week Comments Never 0 (1 standard drink = 0.6 oz pur e alcohol) Comments Unknown Sex and Gender Information Value Date Recorded Sex Assigned at Female 09/19/2022 10:31 AM EDT Legal Sex Female 10:31 AM EDT Gender Identity Female 09/19/2022 10:31 AM EDT Sexual Orientation Straight 09/19/2022 10 :31 AM EDT documented as of this encounter Last Filed Vital Signs Vital Sign Reading Time Taken Comments Blood Pressure 120/80 01/10/2025 11:50 AM EST Pulse - - Temperature - - Respiratory Rate - - Oxygen Saturation - - Inhaled Oxygen Concentration - - Weight - - Height - - Body Mass Index - - documented in this encounter Progress Notes * Tima Ramirez DDS - 01/10/2025 11:30 AM EST Dental procedures in this visit [id number] - PANORAMIC RADIOGRAPHIC IMAGE (Completed) Service provider: Tima Ramirez DDS Billing provider: Tima Ramirez DDS [id number] - CASE PRESENTATION, DETAILED AND EXTENSIVE TREATMENT PLANNING (Completed) Service provider: Tima Ramirez DDS Billing provider: Tima Ramirez DDS [id number] - LIMITED ORAL EVALUATION - PROBLEM FOCUSED (Completed) Service provider: Tima Ramirez DDS Billing provider: Tima Ramirez DDS Patient ID: Cris Burrows is a 24 y.o. female. Time Out: Timeout Date: 01/10/25, Timeout Time: 1143 (pt came in as an emergency with pain for the pass two months on her lower left side. panorex taken) Location: [facility] Tooth: Mandible, #18, and #19 Procedure: X-rays and Emergency Verified the above with patient, assistant executive housekeeper, and provider. Confirmed via patient's chart, intraorally and by radiographs. Transmission Design Engineer: not applicable Chief Complaint Patient presents with Dental Pain Medical Hx: Vitals: Blood pressure 120/80. Past Medical History: Diagnosis Date Asthma Medications: Outpatient Encounter Medications as of 01/10/2025 Medication Sig Dispense Refill Sod Fluoride-Potassium Nitrate 1.1-5 % paste [place] teeth for 2 minutes, morning and night. Spit, donot rinse. Do not eat or drink anything for 30 minutes following brushing. 112 g 3 No facility-administered encounter medications on file as of 01/10/2025. Subjective: Pain: intermittent Duration: >5 days Objective: Tooth: #18 and #19 Reevaluate Radiographs Taken: Panoramic Radiographic Findings: Decay # 18 - prefabricated stainless steel prefabricate crown #19 Clinical Findings: Interdental papillae with inflammation caries with substantial coronal destruction # 19 Swelling: Tenderness and Intraoral swelling Endo Testing: Cold: Hypersensitive, non-lingering Percussion: Pain Palpation: Normal, no pain and severe discomfort / pain while flossing Perio: Erythematous gingival region Other Findings: Multiple carious lesions previously Dx and treatment planned . Diagnosis: Caries into pulp, irreversible pulpitis Assessment/Plan: EOE X ray Prescription to control pain and inflammation Revaluation with attending dentist RCT PC&Cs vs.Exo(s) Prescriptions: Sent to on file Pt tolerated procedure well, all questions answered. Dismissed in good condition. NV: Referred back to Dr. Parker Muse Curtain Supervisor: Yoana Dutta Dentist: Tima Ramirez DDS documented in this encounter Plan of Treatment Upcoming Encounters Date Type Department Care Team (Late st Contact Info) Description 02/07/2025 3:00 PM EDT Office Visit [facility] ADULT D[facility] [address] [place] [address] Parker Muse, DMD [address] [place] [address] Scheduled Orders Name Type Priority Associated Diagnoses Orde r Schedule 18 18 ENDODONTIC THERAPY, MOLAR TOOTH Dental Routine 1 Occurrenc es starting 01/10/2025 19 19 ENDODONTIC THERAPY, MOLAR TOOTH Dental Routine 1 Occurrenc es starting 01/10/2025 documented as of this encounter Procedures Procedure Name Priority Date/Time Associated Diagnosis Comments PANORAMIC RADIOGRAPHIC IMAGE Routine 01/10/2025 11:30 AM EST LIMITED ORAL EVALUATION - PROBLEM FOCUSED Routine 01/10/2025 11:30 AM EST CASE PRESENTATION, DETAILED AND EXTENSIVE TREATMENT PLANNING Routine 01/10/2025 11:30 AM EST documented in this encounter Visit Diagnoses Diagnosis Dental caries into pulp- Primary documented in this encounter
[2025-01-25 10:02] LABS: Hematocrit 38.8 % (37.0-47.0); Hemoglobin 12.9 g/dl (12.0-16.0); Mean Corpuscular HGB Conc 33.2 g/dl (31.0-35.0); Mean Corpuscular Hemoglobin 28.7 pg (27.0-33.0); Mean Corpuscular Volume 86.4 fL (80.0-98.0); Mean Platelet Volume 8.9 fL (9.4-12.3); Platelet Count 296 X10*3/uL (160-400); Red Blood Count 4.49 X10*6/uL (4.20-5.50); Red Cell Distribution Width 12.5 % (11.0-16.0); White Blood Count 5.6 X10*3/uL (4.8-10.8)
[2025-01-25 10:39] LABS: Alanine Aminotransferase 22 U/L (0-31); Albumin Level 4.2 g/dL (3.5-5.0); Alkaline Phosphatase 52 U/L (39-117); Anion Gap 11 (12-20); Aspartate Amino Transferase 24 U/L (5-31); Bilirubin Total 0.5 mg/dL (0.0-1.0); Blood Urea Nitrogen 11 mg/dL (9-16); Calcium 9.5 mg/dL (8.4-10.2); Carbon Dioxide 25 mmol/L (22-29); Chloride 107 mmol/L (96-108); Estimated Glomerular Filt Rate > 60; Glucose Fasting 81 mg/dL (60-99); Potassium 4.3 mmol/L (3.3-5.1); Sodium 139 mmol/L (135-145); TSH reflex Free T4 1.59 uIU/mL (0.32-4.0); Total Protein 8.6 g/dL (6.5-8.0)
== END 2025-01-25 07:48 | disposition home or self-care (01) ==
LOC: HO.LAB 07:47
PROVIDERS: PCP Nurse Practitioner Family; Visit Provider Nurse Practitioner Family
DX: R25.2 Cramp and spasm (principal)
CPT/HCPCS: 36415; 80053; 83735; 84443; 85027

== ENCOUNTER 2025-05-30 15:16 | Outpatient (AMB) | payer OTHER, SELFPAY ==
--- NOTE | 2025-05-30 15:19 | A.OFFPC_ITS ---
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: No Is last menstrual period known: Yes Last menstrual period: 05/06/25 Post menopausal: No Patient : No Allergies cat dander Allergy (Severe, Verified 05/30/25 15:35) Severe Congestion cranberry Allergy (Severe, Verified 05/30/25 15:35) Itchy Throat dog dander Allergy (Severe, Verified 05/30/25 15:35) Severe Congestion Seasonal Allergies Allergy (Intermediate, Verified 05/30/25 15:35) Itchy Eyes butter peacon syrup Allergy (Severe, Uncoded 05/30/25 15:35) Anaphylaxis Medication List - Last Reconciled 05/30/25 by Jorge Eastman CNP albuterol sulfate 90 mcg/actuation 2 puffs inhalation Q4-6H PRN levalbuterol HCl 1.25 mg (0.5 mL) inhalation Q4-6H PRN levalbuterol tartrate 45 mcg/actuation 2 puffs inhalation Q4-6H PRN magnesium oxide 400 mg PO DAILY 30 days Tobacco use date assessed: 05/30/25 Dental Screening Dental Screen Date: 05/30/25 Did you have a dental visit in the last 12 months?: Yes Did you have a dental problem in the last 6 months where you did not have access to dental care?: No Was dental information given to patient?: Patient has dentist HPI HPI Comments History of Present Illness Details 24-year-old female, accompanied by her s pouse, presents for an extended physical exam. She admits to taking her medications as prescribed without adverse reactions. She requests blood hcg to find out if she is currently . She recently did artificial insemination but has not missed her period. Acute issue(s) - None PMH: Asthma, GERD, IBS, bronchitis, anemia, anxiety, depression, and PTSD Social History - Nonsmoker. History of vaping. Does not drink alcohol. Denies recreational drug use - Has been making healthy dietary choice s. Exercises routinely. Generally sleep well Health maintenance - Last eye exam was over 1 year ago with [facility]. 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 She notes that she will call and schedule a pap smear test [facility] Medical History Ovarian cyst Bronchitis Vaping-related disorder Surgical History No pertinent past surgical history Family History Mother No problems noted. 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 ) Female Reproductive History Menstrual Date of last menstrual period: 05/06/25 Questionnaire PHQ-9 Over the last 2 weeks, how often have you been bothered by any of the following problems? 1. Little interest or pleasure in doing things: not at all 2. Feeling down, depressed, or hopeless: not at all 3. Trouble falling or staying asleep, or sleeping too much: not at all 4. Feeling tired or having little energy: nearly every day 5. Poor appetite or overeating: more than half the days 6. Feeling bad about yourself - or that you are a failure or have let yourself or your family down: not at all 7. Trouble concentrating on things, such as reading the newspaper or watching television: not at all 8. Moving or speaking so slowly that other people could have noticed. Or the opposite - being so fidgety or restless that you have been moving around a lot more than usual: not at all 9. Thoughts that you would be better off or of hurting yourself in some way: not at all Total score: 5 Depression Screening Interpretation: Positive Depression Screening Done: Yes 48600 - PHQ-9 Billing: Yes Source: Developed by Drs. Mk Joyner, Priscilla Brock, Charanjit Rajan and colleagues, with an educational marlon from [employer]. Thrive Questionnaire Date Thrive assessed: 05/30/25 I am a: Patient What is your living situation today?: I have a steady place to live Within the past 12 months, did the food you bought not last and you didn't have the money to get more?: Never true Within the past 12 months, did you worry whether your food would run out before you got money to buy more?: Never true Do you have trouble paying for medicines?: No Do you have trouble getting transportation to medical appointments?: No Do you have trouble paying your heating and electricity bill?: No Do you have trouble taking care of your child, family member or friend?: No Do you have trouble with day-to-day activities such as bathing, preparing meals, shopping, managing finances, etc.?: No Are you currently unemployed and looking for a job?: No Are you interested in more education?: No Please select the resources that you would like help with: None Currently or been in a relationship where the following occur: No concerns reported THRIVE Score: 0 AUDIT C Alcohol Use Questionnaire (AUDIT-C) 1. How often do you have a drink containing alcohol?: Never 3. How often do you have six or more drinks on one occasion?: Never Total Score: 0 Score Reviewed/Action Taken: Yes HCANDRAKANT-7 AMB Questionnaire CHANDRAKANT-7 Date CHANDRAKANT - 7 assessed: 05/30/25 Feeling nervous, anxious, or on edge: 0 = Not at all Not being able to stop or control worryin = Not at all Worrying too much about different things: 0 = Not at all Trouble relaxin = Not at all Being so restless that it is hard to sit still: 0 = Not at all Becoming easily annoyed or irritable: 0 = Not at all Feeling afraid as if something awful might happen: 0 = Not at all Total CHANDRAKANT-7 score (0-4 normal; 5-9 mild; 10-14 moderate; 15-21 severe): 0 Source: Developed by Drs. Mk Joyner, Priscilla Brock, Charanjit Rajan and colleagues, with an educational marlon from [employer]. CHANDRAKANT-7 Assessment Billing CHANDRAKANT-7 Assessment Tool: CHANDRAKANT-7 Assessment 44786 ACT Questionnaire In the past 4 weeks, how much of the time did your asthma keep you from getting as much done at work, school or at home?: Most of the time During the past 4 weeks, how often have you had shortness of breath?: 1-2 times a week During the past 4 weeks, how often did your asthma symptoms wake you up at night or earlier than usual in the morning?: Not at all During the past 4 weeks, how often have you had to use your rescue inhaler or nebulizer medication?: Once a week or less How would you rate your asthma control during the past 4 weeks?: Completely controlled ACT Interpretation: Negative Score: 20 Review of Systems Const Details: Denies chills, Denies fatigue, Denies fever(s), Denies headache(s) and Denies weakness HEENT Denies change in vision, Denies dizziness, Denies headache(s), Denies hearing loss, Denies nasal congestion, Denies sinus pain, Denies sinus pressure and Denies sore throat Card Denies chest pain, Denies lightheadedness, Denies dyspnea and Denies other (palpitations) Resp Denies cough, Denies dyspnea and Denies wheezing GI Denies abdominal pain, Denies melena, Denies hematochezia, Denies change in bowel habits, Denies dyspepsia and Denies nausea Denies hematuria and Denies dysuria Musc Denies abnormal gait, Denies myalgias, Denies arthralgias, Denies numbness and Denies tingling Skin/Breast Denies rash, Denies unusual bruising and Denies wounds Neuro Denies abnormal gait, Denies dizziness, Denies headache(s), Denies memory loss, Denies numbness, Denies Sensory deficit (Neuro), Denies tingling and Denies weakness Psych Denies anxiety, Denies depression and Denies memory loss Endo Denies cold intolerance, Denies fatigue, Denies heat intolerance, Denies polydipsia and Denies polyuria Schuyler/Lymph Denies easy bleeding and Denies easy bruising Aller/Immun Denies wheezing Physical exam (Primary Care) Vital Signs: Last Vital Signs Temp 98.3 F 05/30/25 15:29 Pulse 86 05/30/25 15:29 Resp 16 05/30/25 15:29 BP 115/63 05/30/25 15:29 Pulse Ox 99 05/30/25 15:29 Oxygen Delivery Method Room Air 05/30/25 15:29 BMI result Body Mass Index 25.2 Tobacco/Smoking Status: Tobacco use Status Tobacco use date assessed 01/07/25 05/30/25 15:20 Patient Tobacco Use Status Never used Tobacco 05/30/25 15:20 Tobacco use type 01/31/25 11:46 e-Cigarette/Vaping Use Former Use 05/30/25 15:20 Depression Screening Interpretation: Positive Thrive Assessment: Date of Thrive Assessment Date Thrive assessed 05/30/25 05/30/25 15:24 Currently or been in a relationship where the following occur: No concerns reported Const Other: General: no acute distress, well developed, alert and awake Nutritional Appearance: well nourished Orientation/consciousness: patient oriented x3 HENMT Head: Yes normocephalic and Yes atraumatic Ears: hearing grossly normal bilaterally and TM's normal bilaterally General nose exam: Normal external nose present and Normal nares present Mouth: Normal oral and palatal mucosa present and moist mucous membranes Teeth and gingiva: dentition normal Throat: Yes oropharynx normal Eyes Pupils: Equal, round and reactive pupils present and Pupil accommodation reflex normal EOM: EOMs intact bilaterally Neck Neck: Yes normal visual inspection, Yes no lymphadenopathy and Yes trachea midline Thyroid: Thyroid normal Carotids: no bruits Lymphatic: no lymphadenopathy noted Chest Chest palpation & inspection: normal inspection of the chest Resp Effort & Inspection: normal respiratory effort Auscultation: clear to auscultation bilaterally Cardio Rate: regular rate Rhythm: regular rhythm Heart sounds: S1 normal heart sound present, S2 normal heart sound present, no gallops, no murmurs and no rubs Bruits: no abdominal aortic bruits and no carotid bruits GI Palpation (GI): No Abdominal aortic bruit present, Soft to palpation, nontender, No hepatosplenomegaly present and No Rebound tenderness present Auscultation: normal bowel sounds General: Yes no CVA tenderness Back/Spine/Pelvis Back: no CVA tenderness Cervical Spine: cervical ROM normal and No Cervical spine tenderness Thoracic/Lumbar Spine: thoraco-lumbar ROM normal, No pain with thoraco-lumbar ROM, No thoracic spinal tenderness and No lumbar spinal tenderness Skin General: warm and dry. Normal skin color. Normal skin turgor Lesions: no lesions Rashes: no rashes Trauma: no lacerations or abrasions Wounds: no wounds Nails: normal Neuro General: patient oriented x3, gait normal and CN's II-XI intact bilaterally Cranial nerves: Yes Equal, round and reactive pupils present Cognition (Neuro): normal cognition Gait exam (Neuro): Normal gait present Motor exam (neuro): 5/5 motor strength present throughout Sensory Exam: No Sensory deficit (Neuro) Deep tendon reflexes (DTR's): Right patellar reflex intensity grade: 2+ and Left patellar reflex intensity grade: 2+ Extrem General: Yes normal to inspection, No edema and No calf tenderness Psych Appearance: grossly normal Affect: normal affect Attitude: cooperative Thought process: Normal thought process present Coding Level of Care Code Est Pt Prev Care 18-39y(32551) Diagnoses Normal physical examination, routine Z00.00 Family planning Z30.09 Asthma J45.909 Additional Codes CHANDRAKANT-7 Assessment Billing - CHANDRAKANT-7 Assessment Tool: CHANDRAKANT-7 Assessment 35015 ([id number]) PHQ-9 - 94686 - PHQ-9 Billing: Yes ([id number]) Asthma Control Questionnaire - ACT Interpretation: Negative ([id number]) Assessment & Plan Assessment & Plan (1) Normal physical examination, routine: Code(s): Z00.00 - Encounter for general adult medical examination without abnormal findings Category: Medical Plan: No significant functional limitations noted. Healthy diet and routine exercise encouraged. Recent labs reviewed with the patient; unremarkable findings. Encouraged to perform lipid panel, vitamin-D, and u/a lab work; fast for 10-12 hours, may drink water, before blood work. Will review results and make changes as needed. Follow-up for an extended physical exam in a year from today. Return sooner with symptoms or concerns. Verbalized understanding and agreed with the plan. (2) Family planning: Code(s): Z30.09 - Encounter for other general counseling and advice on contraception Category: Medical Plan: She requests blood hcg to find out if she is currently . She recently did artificial insemination but has not missed her period. HCG blood work ordered. (3) Asthma: Code(s): J45.909 - Unspecified asthma, uncomplicated Category: Medical Plan: ACT score is 20, will control asthma. Continue current treatment regimen. Follow-up with symptoms or concerns. Verbalized understanding and agreed with the plan. Orders: Orders Vitamin D 25-OH Total Today Z00.00 - Encounter for general adult medical examination without abnormal findings HCG Quantitative Today Z30.09 - Encounter for other general counseling and advice on contraception Lipid Panel Today Z00.00 - Encounter for general adult medical examination without abnormal findings UA CC w/rflx Micro + Cult Today Z00.00 - Encounter for general adult medical examination without abnormal findings
[2025-05-30 15:29] VITALS: BP 115/63; PULSE 86; RESP 16; TEMP 36.8; O2SAT 99; BMI 25.2
== END 2025-05-30 15:55 | disposition home or self-care (01) ==
LOC: HO.HMCFM 15:17
PROVIDERS: PCP Nurse Practitioner Family; Visit Provider Nurse Practitioner Family
DX: Z00.00 Encounter for general adult medical examination without abnormal findings (principal); J45.909 Unspecified asthma, uncomplicated

== ENCOUNTER → 2025-05-30 15:16 | Outpatient (BNVA) | payer OTHER, SELFPAY | PROVIDERS: PCP Nurse Practitioner Family; Visit Provider Nurse Practitioner Family | DX: Z00.00 Encounter for general adult medical examination without abnormal findings (principal); J45.909 Unspecified asthma, uncomplicated; Z13.31 Encounter for screening for depression; Z13.39 Encounter for screening examination for other mental health and behavioral disorders | CPT/HCPCS: 96127; 96160; 99395 ==

== ENCOUNTER 2025-05-31 08:00 | Outpatient (REF) | payer OTHER, SELFPAY ==
--- OUTSIDE RECORDS SUMMARY | 2025-05-31 08:02 | XMS_ITS | Clinical Summary ---
Author Organization [employer] Address [address] [place] [address] Care Team Providers Care Audiovisual Aids Technician Name Role Phone Unavailable Primary Care Provider Unavailabl e Allergies No known active allergies Medications Sod Fluoride-Potass ium Nitrate 1.1-5 % pasteIndication s:Dental caries [place] teeth for 2 minutes, morning and night. Spit, do not rinse. Do not eat or drink anything for 30 minutes following brushing. 112 g 3 4 Active acetaminophen (Tylenol) 500 MG tabletIndicatio ns:Dental caries into pulp Take 1 tablet (500 mg) by mouth every 6 (six) hours if needed for mild pain for up to 20 doses. 20 tablet 5 Active Additional Information Patient not taking.Reported on 03/26/2025 ibuprofen 600 MG tabletIndicatio ns:Dental caries into pulp Take 1 tablet (600 mg) by mouth every 6 (six) hours if needed for mild pain for up to 20 doses. 20 tablet 5 Active Additional Information Patient not taking.Reported on 03/26/2025 Active Problems Problem Noted Date Diagnosed Date Dental caries into pulp 01/10/2025 Encounters Date Type Department Care Team Description 05/15/2025 Telephone [facility] [address] [place] [address] Javier Cabrera 03/26/2025 2:00 PM EDT Office Visit [facility] [address] [place] [address] Parker Muse DMD Dental caries (Primary Dx) from Last 3 Months Social [...] Sign Reading Time Taken Comments Blood Pressure 122/76 03/26/2025 2:16 PM EDT Pulse - - Temperature - - Respiratory Rate - - Oxygen Saturation - - Inhaled Oxygen Concentration - - Weight - - Height - - Body Mass Index - - Plan of Treatment Upcoming Encounters Date Type Department Care Team (Late st Contact Info) Description 06/24/2025 2:00 PM EDT Office Visit [facility] [address] [place] [address] Parker Muse, DMD [address] [place] [address] Health Maintenance Due Date Last Done Comments Chlamydia and Gonorrhea Screening 2002 Depression Screening 2002 HIV Screening 2002 SDOH Screening 2002 Disability Screening 2002 Alcohol/Substance Use Screening 2014 Family Planning (PISQ) 2017 HPV Vaccines (1 - 3-dose series) 2017 Meningococcal B Vaccine (1 of 2 - Standard) 2018 Dental Prophylaxis 01/05/2020 07/04/2019, 1 01/08/2018, 03/24/2017, Additional history exists Hepatitis C Screening 2020 DTaP/Tdap/Td Vaccines (1 - Tdap) 2021 Hepatitis B Vaccines (1 of 3 - 19+ 3-dose series) 2021 Pneumococcal Vaccine: Pediatrics (0 to 5 Years) and At-Risk Patients (6 to 49) Years (1 of 2 - PCV) 2021 Pap Smear 2023 Dental Oral Exam 06/08/2024 12/08/2023, , 11/07/2018, Additional history exists COVID-19 Vaccine (1 - 2023- season) 2024 Dental X-Ray: Bitewings 12/09/2024 12/08/19 24, 12/07/2023, 07/04/2019, Additional history exists Influenza Vaccine (#1) 2025 Tobacco Screening 03/26/2026 03/26/2025 Dental X-Ray: Full Mouth 01/11/2028 025, 12/08/2023, [...] Procedure Name Priority Date/Time Associated Diagnosis Comments CASE PRESENTATION, DETAILED AND EXTENSIVE TREATMENT PLANNING Routine 03/26/2025 2:00 PM EDT Dental caries 24 MDFL RESIN-BASED COMPOSITE - 4 OR MORE SURFACES (ANTERIOR) Routine 03/26/2025 2:00 PM EDT Dental caries 25 MF RESIN-BASED COMPOSITE - 2 SURF, ANTERIOR Routine 03/26/2025 2:00 PM EDT Dental caries PANORAMIC RADIOGRAPHIC IMAGE Routine 01/10/2025 11:30 AM EST INTRAORAL - COMPLETE SERIES OF RADIOGRAPHIC IMAGES Routine 12/08/2023 2:00 PM EST Dental caries Gingivitis COMPREHENSIVE ORAL EVALUATION - NEW OR ESTABLISHED PATIENT Routine 12/08/2023 2:00 PM EST Dental caries Gingivitis PROPHYLAXIS - ADULT Routine 07/04/2019 1 2:00 AM EDT from Last 3 Months or Most Recently Relevant to Health Maintenance Insurance [facility] MEDICAID STAND ADULT
--- OUTSIDE RECORDS SUMMARY | 2025-05-31 08:02 | XMS_ITS | Clinical Summary ---
Author Organization [facility] ity Address [address] [place] [address] Care Team Providers Care Trekking Guide Name Role Phone Unavailable Primary Care Provider [...] 3-dose series) 2017 Meningococcal B Vaccine (1 o f 2 - Standard) 2018 DTaP,Tdap,and Td Vaccines (1 - Tdap) 2021 Hepatitis B Vaccines (1 of 3 - 19+ 3-dose series) 2021 Cervical Cancer Screening: P ap Smear 2023 Depression Screening 06/12/2024 HIV Screening 06/12/2024 Hepatitis C Screening 06/12/2024 Social Influencers of Health Screening 06/12/2024 COVID-19 Vaccine (1 - 2023-2 5 season) 2024 Influenza Vaccine (#1) 2025 HIB Vaccines Aged Out No longer eligi [...] 5 Years) and At-Risk Patients (6 to 49 Years) Aged Out No longer eligible b ased on patient's age to complete this topic RSV Immunization Patients Un mathew 20 months Aged Out No longer eligible b ased on patient's age to complete this topic Varicella Vaccines Aged Out No longer eligible based on patient's age to complete this topic
[2025-05-31 08:37] LABS: Appearance Urine Clear; Glucose Urine UA Negative (Negative); PH 6.0 (5.0-9.0); Specific Gravity - Urine 1.010 (1.005-1.025)
[2025-05-31 09:09] LABS: Cholesterol 156 mg/dL (<200); HDL Cholesterol 42 mg/dL (>40); Triglycerides 57 mg/dL (<150)
== END 2025-05-31 08:01 | disposition home or self-care (01) ==
LOC: HO.LAB 08:00
PROVIDERS: PCP Nurse Practitioner Family; Visit Provider Nurse Practitioner Family
DX: Z00.00 Encounter for general adult medical examination without abnormal findings (principal)
CPT/HCPCS: 36415; 80061; 81003; 82306; 84702